=== PATIENT | male | born 1950 | race Caucasian/White ===

== ENCOUNTER 2016-06-30 03:28 | Inpatient (IN) | payer MEDICARE, OTHER ==
[2016-06-30] VITALS (8 sets, daily range): BP systolic 106–146; BP diastolic 58–91
[~2016-06-30] VITALS: Ht 165.1 cm; Wt 92.6 kg
[~2016-06-30 03:28] MED LIST: ADVAIR 250/501 EA INH; ALBUTEROL2.5 MG/0.5 INH; ASPIRIN ADULT L81 M2 PO; ASPIRIN81 M1 PO; CEPACOL SORE T1 EAC1 PO; CIPRO500 MG PO; COLACE100 MG PO; DOXYCYCLINE100 M3 PO; DUONEB 3 MG/3 ML3 M1 INH; FLOMAX0.4 MG PO; GLIPIZIDE5 MG PO; LEVAQUIN750 M1 PO; LEVOFLOXACIN500 MG PO; LISINOPRIL5 MG PO; MULTI VITAMINS1 TAB PO; OXYGEN NAS; PRAVACHOL20 MG PO; PREDNISONE10 M1 PO; PREDNISONE10 MG PO; PREDNISONE20 M1 PO; PROVENTIL0.09 MG/A1 INH; ROBITUSSIN COUG1 SGL PO; SIMVASTATIN80 MG PO; SPIRIVA RESPIMAT4 GM INH; SPIRIVA18 MCG PO; SYMBICORT1 AE1 INH; VIBRAMYCIN100 MG PO; VITAMIN D1000 IU PO; VITAMIN D31000 IU PO; ZESTRIL5 MG PO
[2016-06-30] MEDS ORDERED: NEURONTIN100 MG PO (03:31)
[2016-06-30 03:50] LABS: BASO % 0.2 % (0.0-1.0); EOS # 0.2 10*3/uL (0.0-0.4); EOS % 2.3 % (1.0-4.0); HEMATOCRIT 43.8 % (42.0-52.0); HEMOGLOBIN 14.8 g/dl (14.0-18.0); LYMPH # 0.8 10*3/uL (1.3-4.4); LYMPH % 9.5 % (27.0-41.0); MEAN CELL VOLUME 93.2 fl (80.0-94.0); MEAN CORPUSCULAR HGB 31.5 pg (27.0-31.0); MEAN CORPUSCULAR HGB CONC 33.8 g/dl (33.0-37.0); MEAN PLATELET VOLUME 9.7 fl (9.6-12.3); MONO # 0.8 10*3/uL (0.1-1.0); NEUT # 6.7 10*3/uL (2.3-7.9); NEUT % 78.9 % (47.0-73.0); PLATELET COUNT AUTOMATED 161 10*3/uL (130-400); RED CELL DISTRI WIDTH 12.9 % (0-14.5); WHITE BLOOD COUNT 8.4 10*3/uL (4.8-10.8)
[2016-06-30 04:08] LABS: ALKALINE PHOSPHATASE 64 U/L (45-117); BILIRUBIN, TOTAL 0.4 mg/dl (0.2-1.0); BUN 10 mg/dl (7-24); CARBON DIOXIDE 24 mmol/L (21-32); CHLORIDE 107 mmol/L (98-107); EST GLOM FILT AFRICAN AMERICAN > 60 ml/min; GLUCOSE 123 mg/dL (65-99); POTASSIUM 3.7 mmol/L (3.5-5.1); SGOT/AST 27 IU/L (3-35); SGPT/ALT 43 U/L (12-78); SODIUM 142 mmol/L (136-145); TOTAL PROTEIN 7.2 gm/dL (6.4-8.2)
[2016-06-30 04:09] LABS: TROPONIN I < 0.015 ng/ml (<0.045)
[2016-06-30 05:47] LABS: LA>2 REFLEX 2 HR DRAW NOW
[2016-06-30 06:19] LABS: HEMATOCRIT 43.5 % (42.0-52.0); HEMOGLOBIN 14.6 g/dl (14.0-18.0); MEAN CORPUSCULAR HGB 31.5 pg (27.0-31.0); MEAN CORPUSCULAR HGB CONC 33.6 g/dl (33.0-37.0); MEAN PLATELET VOLUME 9.8 fl (9.6-12.3); PLATELET COUNT AUTOMATED 161 10*3/uL (130-400); RED BLOOD COUNT 4.63 10*6/uL (4.50-5.90); RED CELL DISTRI WIDTH 13.2 % (0-14.5)
[2016-06-30 06:26] LABS: LA>2 RFLX FOLLOW UP AT 2 HRS 2.6 mmol/L (0.4-2.0)
[2016-06-30 06:31] LABS: ALBUMIN 4.1 gm/dl (3.1-4.5); ALKALINE PHOSPHATASE 63 U/L (45-117); BILIRUBIN, TOTAL 0.4 mg/dl (0.2-1.0); BUN 11 mg/dl (7-24); CARBON DIOXIDE 25 mmol/L (21-32); CHLORIDE 103 mmol/L (98-107); EST GLOM FILT AFRICAN AMERICAN > 60 ml/min; GLUCOSE 206 mg/dL (65-99); MAGNESIUM 1.8 mg/dL (1.5-2.1); PHOSPHOROUS 1.9 mg/dL (2.5-4.9); POTASSIUM 3.7 mmol/L (3.5-5.1); SGOT/AST 26 IU/L (3-35); SGPT/ALT 39 U/L (12-78); SODIUM 140 mmol/L (136-145); TOTAL PROTEIN 7.2 gm/dL (6.4-8.2)
[2016-06-30 06:41] LABS: FREE T4 0.95 ng/dl (0.76-1.46); THYROID STIM HORMONE (HS) 0.656 uIU/ml (0.358-4.75)
[2016-06-30 06:48] LABS: TROPONIN I < 0.015 ng/ml (<0.045)
[2016-06-30 06:53] LABS: PROTHROMBIN TIME 10.9 SECONDS (9.0-12.4)
[2016-06-30 07:07] LABS: LYMPHOCYTE # 0.3 10*3/uL (1.3-4.4); NEUTROPHIL # 8.7 10*3/uL (2.3-7.9); NEUTROPHILS 97 % (47-73); PLATELET SUFFICIENCY NORMAL (NORMAL); TOTAL CELLS COUNTED 100 #CELLS
[2016-06-30 08:09] LABS: LA>2 REFLEX 4 HR DRAW NOW
[2016-07-01] VITALS: BP 143/83
[2016-07-01 08:00] VITALS: BP 106/76
[2016-07-01 12:00] VITALS: BP 121/65
[2016-07-01 16:00] VITALS: BP 141/70
[2016-07-01 20:00] VITALS: BP 135/73
[2016-07-02] VITALS: BP 136/79
[2016-07-02 08:00] VITALS: BP 130/78
[2016-07-02 12:00] VITALS: BP 128/75
[2016-07-02 16:00] VITALS: BP 143/70
[2016-07-02] MEDS ORDERED: ZITHROMAX250 MG PO (17:19)
[2016-07-02] MEDS ORDERED: CEPACOL SORE T1 EAC1 PO (17:19)
[2016-07-02] MEDS ORDERED: MUCINEX ER600 MG PO (17:19)
== END 2016-07-02 21:00 | disposition home or self-care (01) | DRG 189 ==
LOC: ED 03:28 → 5E 04:39 → EDHOLD 04:39 → 5E 04:57
PROVIDERS: Emergency Medicine Emergency Medical Services; Internal Medicine Hospice and Palliative Medicine
DX: J96.01 Acute respiratory failure with hypoxia (principal); E87.2 Acidosis; J44.1 Chronic obstructive pulmonary disease with (acute) exacerbation; J64 Unspecified pneumoconiosis; E11.9 Type 2 diabetes mellitus without complications; E66.9 Obesity, unspecified; N40.0 Benign prostatic hyperplasia without lower urinary tract symptoms; I10 Essential (primary) hypertension; E78.5 Hyperlipidemia, unspecified; E55.9 Vitamin D deficiency, unspecified; Z87.891 Personal history of nicotine dependence; Z83.3 Family history of diabetes mellitus; Z82.49 Family history of ischemic heart disease and other diseases of the circulatory system; Z88.1 Allergy status to other antibiotic agents; Z88.8 Allergy status to other drugs, medicaments and biological substances; Z79.51 Long term (current) use of inhaled steroids; Z79.82 Long term (current) use of aspirin; Z99.81 Dependence on supplemental oxygen; Z79.899 Other long term (current) drug therapy; Z68.34 Body mass index [BMI] 34.0-34.9, adult

== ENCOUNTER 2017-02-09 04:03 | Inpatient (IN) | payer MEDICARE, OTHER ==
[~2017-02-09] VITALS: Ht 162.5 cm; Wt 89.0 kg
[2017-02-09] VITALS (7 sets, daily range): BP systolic 124–161; BP diastolic 63–91
--- NOTE | ~2017-02-09 | EKG ---
[place], [place] ELECTROCARDIOGRAM REPORT NAME: JASON SANTA UNIT #: [id number] ROOM: 405 DOCTOR: KELSEY RAMIREZ MD,NIKO BIRTHDATE: [birth year] DOS: 02/11/2017 ELECTROCARDIOGRAM Electrocardiogram done 02/11/2017 at 12:48 p.m. Normal sinus rhythm noted with 93 beats per minute. Nonspecific ST-T changes were noted in the lateral leads. NIKO COLE MD CM:EKGRPT:ELECTROCARDIOGRAM REPORT [id number] 1635 NIKO RAMIREZ MD
--- NOTE | ~2017-02-09 | PR ---
[place], [place] PROGRESS NOTE NAME: JASON SANTA UNIT #: [id number] ROOM: 405 DOCTOR: ASHLY HOPSON DO BIRTHDATE: [birth year] DOS: 02/12/2017 This progress note is to be attached to the one dictated separately by Dr. Cole. SUBJECTIVE: The patient was evaluated. He is awake, alert and responsive. He is still coughing and having some shortness of breath, but denying any fevers. A bronchoscopy was done earlier today and there were multiple mucus plugs and tracheobronchitis observed. Procedure, the patient tolerated the procedure and he will be staying overnight and getting reevaluated tomorrow. Otherwise, no new symptoms. OBJECTIVE: VITAL SIGNS: Temperature 98.3, pulse 80, respiratory rate 18, blood pressure 125/86, bedside pulse oximetry 93% on 2 liters nasal cannula. GENERAL: Awake, alert, oriented, mild distress. RESPIRATORY: Scattered wheezes, diminished breath sounds and crackles, more prominent on the left side. HEART: Regular rate and rhythm, no murmur. HEENT: No changes. ABDOMEN: Soft, nontender, nondistended. LABORATORY DATA: WBC is 17.6, HGB 15.5, and platelets are 192. Chemistry: Sodium is 135, creatinine 1.33, somewhat increased from yesterday; however, staying mostly in the same range. Hemoglobin A1c was 7.0, calcium 9.2, vitamin D, vitamin B12, and folate are all normal. ASSESSMENT AND PLAN: Chronic obstructive pulmonary disease exacerbation with mucus impaction leading to severe cough. Leukocytosis and steroid-induced hyperglycemia. PLAN OF MANAGEMENT: The patient did have a bronchoscopy done today and will continue with bronchodilators and antibiotics as currently being done. We will reevaluate tomorrow in hopes of improvement in the respiratory status and possible discharge if things go according to plan as expected, but otherwise no new changes at this time and please see Dr. Cole's note for more details. ASHLY HOPSON DO [place], [place] PROGRESS NOTE NAME: ARLENE SANTANOREEN Diop UNIT #: [id number] ROOM: [facility] DOCTOR: ASHLY HOPSON DO BIRTHDATE: [birth year] NIKO COLE MD CM:PNKATIE [id number] ASHLY HOPSON DO 02/13/17 0423 interface
--- NOTE | ~2017-02-09 | CON ---
[place], [place] REPORT OF CONSULTATION NAME: JASON SANTA [facility] #: [id number] UNIT #: [id number] ROOM: 405 DOCTOR: NIKO EDWARDS MD BIRTHDATE: [birth year] DOS: 02/09/2017 REASON FOR CONSULTATION: Consultation requested by the Hospitalist Services for assessment of COPD. HISTORY OF PRESENT ILLNESS: This is a 66-year-old white male with known past medical problem of centrilobular emphysema. The patient had pneumoconiosis and other medical illnesses, presented to the Emergency Room. He developed symptoms of acute shortness of breath, which worsened with symptoms of significant coughing and chest congestion. Symptoms were noted to gradual increase for the past 2 to 3 days. He came into the hospital for further medical management. He denies any symptoms of chest pain or any hemoptysis. Cough has been noted with whitish sputum expectoration. There were symptoms of chest pain described. There were symptoms of hemoptysis. Wheezing was described intermittently with symptoms of chest tightness. REVIEW OF SYSTEMS: CONSTITUTIONAL: He does complain of fatigue, but there were no symptoms of fever or chills. EYES: Denies burning, redness or discharge, dryness. NECK, EAR, NOSE, THROAT SYMPTOMS: Denies sore throat, hoarseness, otalgia, postnasal drainage or epistaxis. CARDIOVASCULAR: Denies anginal pain, edema, pain of the lower extremity. GASTROINTESTINAL: Denies dysphagia, nausea, vomiting, diarrhea, abdominal pain, hematemesis, melena, or hematochezia. SKIN: Denies lesions or rashes. MUSCULOSKELETAL: No acute deformities. CENTRAL NERVOUS SYSTEM: No loss of consciousness ____ syncopal episode, seizures. Remaining systems were reviewed. The patient, they were noted all negative. PAST MEDICAL HISTORY: 1. Centrilobular emphysema. 2. Essential hypertension. 3. Type 2 diabetes mellitus. 4. Pneumoconiosis. 5. Nephrolithiasis. SOCIAL HISTORY: The patient is , has 2 children. Denies history of alcohol use, illicit drug use. He used to use smoked tobacco pipe in the past that was discontinued about 40 years ago. Denies history of alcohol use or illicit drug use. PAST SURGICAL HISTORY: Noted None. FAMILY HISTORY: Father passed at the age of 60 due to complication related to tuberculosis. Mother at age 50 years due to complication of diabetes mellitus. MEDICATIONS: Current administered medications were noted as use of a sliding [place], [place] REPORT OF CONSULTATION [id number] UNIT #: [id number] ROOM: 405 DOCTOR: KELSEY RAMIREZ MD,NIKO BIRTHDATE: [birth year] insulin coverage, Mucinex 1200 mg b.i.d., Solu-Medrol 60 mg t.i.d., Lovenox, Protonix oral, Levaquin, and other p.r.n. medications administration. DRUG ALLERGIES: THE PATIENT NOTED ALLERGY TO: 1. ZITHROMAX. 2. ZANTAC. PHYSICAL EXAMINATION: GENERAL: A 66-year-old white male currently noted to be awake and alert without any acute distress. The patient's height was noted as 5 feet 4 inches, weight of 196 pounds. VITAL SIGNS: The patient showed normal temperature, respiratory rate 18, heart rate of 91, blood pressure 131/60-150/84. Pulse oxygen saturation of the patient recorded as 91% on 2 liter nasal cannula. HEENT: Showed no new change. NECK: Supple. CARDIOVASCULAR: S1, S2 audible. LUNGS: General reduction in the breath sounds noted in the lungs bilaterally with expiratory wheezing, no crackles. ABDOMEN: Soft, flat, nontender, bowel sounds present. EXTREMITIES: Noted without any edema, clubbing, cyanosis. CENTRAL NERVOUS SYSTEM: Cranial nerves 2-12 intact. No focal neurologic deficit. MUSCULOSKELETAL: No deformities. SKIN: Does not show lesions or rash in visible skin. LABORATORY DATA: CBC of the patient this morning noted as eosinophil 10.7%. Remaining CBC was normal. The lactic acid this morning was 1.4. PT/PTT this morning were normal. CMP this morning, glucose 130, BUN and creatinine were normal, remaining LFTs and a troponin normal. Sputum for Gram stain, cultures, many white blood cells, few epithelial cells, few gram-positive cocci in pairs, few gram-negative bacilli, pending culture results. The chest x-ray that was done for the patient on admission, just one view was done in the Emergency Room, which shows small area of left lower lobe atelectasis without any acute pulmonary infiltration. IMPRESSION: 1. The patient will be currently admitted to the hospital with finding consistent with acute tracheobronchitis and exacerbation of COPD from his past history known as well. 2. Acute bronchitis. Whether viral or bacterial for the patient needs to be determined. 3. The patient with a short-term tobacco use in the past. 4. History of pneumoconiosis, work-related was also known. 5. History of essential hypertension. 6. Type 2 diabetes mellitus noted with mild hyperglycemia. PLAN OF TREATMENT: The patient will be continued on current dose of corticosteroids for the next 24 hours. The reduction of the dose will be started most likely tomorrow. Monitor results of the sputum for Gram and [place], [place] REPORT OF CONSULTATION NAME: JASON SANTA UNIT #: [id number] ROOM: 405 DOCTOR: NIKO EDWARDS MD BIRTHDATE: [birth year] culture. Continue mucolytics. Continuation of bronchodilators as DuoNeb. Supportive therapy, plan of management. Additional treatment changes will be done based on progression of the illness. Ambulation as tolerated. Supportive care, other therapy, plan of management and other treatment plan. Usual care. Thanks for allowing me to participate in the care of this patient. NIKO COLE MD CM:CONSTR:REPORT OF CONSULTATION 1327 02/10/17 0436 interface
--- NOTE | ~2017-02-09 | PR ---
[place], [place] PROGRESS NOTE NAME: JASON SANTA UNIT #: [id number] ROOM: 405 DOCTOR: KELSEY RAMIREZ MD,NIKO BIRTHDATE: [birth year] DOS: 02/11/2017 PULMONARY FOLLOWUP SUBJECTIVE: The patient was seen and examined on 02/11/2017. He was still noted with intermittent coughing which has been noted episodic with minimal sputum expectoration. The patient has frequent episodes of the cough which were not resolving. There were no symptoms of chest pain; however, wheezing, shortness breath has been improving. This morning as the patient was seen, he was sitting on the chair. OBJECTIVE: VITAL SIGNS: For this morning were recorded as normal temperature, respiratory rate 18, heart rate 92, blood pressure 106/56. Pulse oxygen saturation on 2 liters nasal cannula 92% saturation recorded. HEENT: No acute change. NECK: Supple. CARDIOVASCULAR: S1, S2 audible. LUNGS: The patient was noted with generally reduced breath sounds with expiratory wheezing, no crackles. ABDOMEN: Soft, nontender. LABORATORY DATA: Culture of sputum, normal primo. The blood culture from ____, no bacterial growth, final results pending. BMP this morning, BUN 26, creatinine was normal. CBC this morning: WBC count 18,000, hemoglobin and hematocrit normal, platelet count normal, 96% segmented neutrophils. IMPRESSION: 1. The patient with persistent acute exacerbation of chronic obstructive pulmonary disease was noted at this time. 2. Severe cough which has been noted nonresolving with strong possibility of mucus impaction in the major airways. 3. The patient with leukocytosis related to the current corticosteroids administration. 4. Acute exacerbation of chronic obstructive pulmonary disease as well. 5. Steroid-induced hyperglycemia and mild azotemia as well. PLAN OF MANAGEMENT: The patient will be continued on current plan of therapy at this time as previously ordered. Bronchodilators will be continued. Continue current dose of steroids which has been decreased, monitoring the leukocytosis. Fibrobronchoscopy was suggested to be done in the morning to assess the mucus impaction and clear the mucus impaction in major airways. The risk and benefits have been discussed with the patient and he agreed with that. The procedure was scheduled to be done in the morning. [place], [place] PROGRESS NOTE NAME: JASON SANTA UNIT #: [id number] ROOM: 405 DOCTOR: NIKO EDWARDS MD BIRTHDATE: [birth year] NIKO COLE MD CM:PNTRANS 1212 [id number] NIKO RAMIREZ MD 02/12/17 0648 interface
--- NOTE | ~2017-02-09 | PR ---
[place], [place] PROGRESS NOTE NAME: JASON SANTA [facility] #: [id number] UNIT #: [id number] ROOM: 405 DOCTOR: KELSEY RAMIREZ MD,NIKO BIRTHDATE: [birth year] DOS: 02/13/2017 SUBJECTIVE: He has been doing very well at this time with current respiratory management. Bronchoscopy done yesterday, marked improvement noted in respiratory symptoms with reduction in wheezing, shortness of breath and cough. The patient was independently seen today with [id number] encounter. The physical finding of the patient was confirmed, history was reviewed all the labs reviewed. The planning for this patient and assessment personally made for today's visit. The note done by the resident medical officer was approved. The bronchial washing culture preliminary showing no bacterial growth. The auscultation of chest noted clear of any abnormal wheezing at this time. PLAN OF TREATMENT: The patient will be considered for home discharge with tapering dose of prednisone and the oral antibiotics. Outpatient followup to be established for the patient for his usual followup visit in the next 2-3 weeks after discharge. NIKO COLE MD CM:PNTRANS 1122 NIKO RAMIREZ MD 02/14/1713 interface
--- NOTE | ~2017-02-09 | PR ---
[place], [place] PROGRESS NOTE NAME: JASON SANTA UNIT #: [id number] ROOM: 405 DOCTOR: NIKO EDWARDS MD BIRTHDATE: [birth year] DOS: 02/10/2017 SUBJECTIVE: He has been noted excessive coughing last night. Shortness of breath has been noted decreased. The wheezing was noted intermittently. There were no symptoms of chest pain. OBJECTIVE: VITAL SIGNS: For the patient, which has been recorded showed the temperature noted as normal. The respiratory rate 18, heart rate 81, blood pressure 144/74. The pulse oxygen saturation on 2 liters nasal cannula 94% saturation. HEENT: Showed no new change. NECK: Supple. CARDIOVASCULAR: S1, S2 is audible. LUNGS: The patient was noted with moderate expiratory wheezing. There were no crackles. ABDOMEN: Soft, nontender. EXTREMITIES: Shows no edema. LABORATORY DATA: Culture of the sputum on showed normal primo, final culture results were pending. CMP this morning, BUN 23, creatinine 1.33, which was elevated. CBC of this morning: WBC count 20,000; hemoglobin, hematocrit and platelet count was normal. IMPRESSION: 1. Ongoing acute exacerbation of chronic obstructive pulmonary disease. 2. Coughing for this patient was also noted, most likely related to mucus impaction and underlying pulmonary infection. 3. Leukocytosis worsened for the patient because of the use of the corticosteroids effect. 4. Hyperglycemia secondary to the use of the corticosteroids. PLAN OF MANAGEMENT: Dose of Solu-Medrol will be decreased. Monitor leukocytosis. Continuation of bronchodilators as well as mucolytics. Use of the flutter valve for the patient as well. No change in antibiotic at this time will be necessary. Additional treatment changes need to be made based on progression of the illness. [place], [place] PROGRESS NOTE NAME: JASON SANTA UNIT #: [id number] ROOM: 405 DOCTOR: NIKO EDWARDS MD BIRTHDATE: [birth year] NIKO COLE MD CM:PNTRANS [phone] NIKO RAMIREZ MD 02/11/17 0106 interface
--- NOTE | ~2017-02-09 | PR ---
[place], [place] PROGRESS NOTE NAME: JASON SANTA UNIT #: [id number] ROOM: 405 DOCTOR: NIKO EDWARDS MD BIRTHDATE: [birth year] DOS: 02/12/2017 ADDENDUM NOTE PULMONARY FOLLOWUP SUBJECTIVE: The patient was independently seen today with [id number] encounter, history was confirmed. Physical examination performed. Assessment management for the patient for today's visit was personally completed as well. Any changes in the medical management personally made for this patient as needed. The note done by the medical office coordinator was approved. The patient had been noted comfortable at this time, but still noted severe cough, which remains episodic without any improvement from yesterday. Shortness breath for the patient noted with current episode of cough. The wheezing was also described intermittently. He has noted n.p.o. past midnight for bronchoscopy. OBJECTIVE: VITAL SIGNS: Normal temperature, respiratory rate 20, heart rate 86, blood pressure 118/80. The pulse oxygen saturation on 3 liters nasal cannula was 96% saturation. HEENT: No new change. NECK: Supple. CARDIOVASCULAR: S1, S2 audible. LUNGS: Shows moderate reduced breath sounds, expiratory wheezing, no crackles. ABDOMEN: Soft, obese, nontender. EXTREMITIES: Without any edema. LABORATORY DATA: BMP: BUN 28, creatinine 1.33, sodium 135. CBC: WBC count 17.6, hemoglobin and hematocrit normal, platelet count was normal. IMPRESSION: The patient with persistent severe cough. The patient's other symptoms remain and persist. Current medical management ongoing for the patient for the acute exacerbation of COPD. Suspected mucus impaction, leukocytosis also noted. Combination of the steroids and the current acute infection. PLAN OF MANAGEMENT: Proceed with bronchoscopy as planned. Monitor leukocytosis. Continue antibiotics, bronchodilators, modification to treatment after bronchoscopy for the patient will be made accordingly. Continue symptomatic management for cough as well. Usual care. Supportive therapy, plan of management. [place], [place] PROGRESS NOTE NAME: JASON SANTA UNIT #: [id number] ROOM: 405 DOCTOR: NIKO EDWARDS MD BIRTHDATE: [birth year] NIKO COLE MD CM:PNKATIE [id number] NIKO RAMIREZ MD 02/12/17 0340 interface
--- NOTE | ~2017-02-09 | PROC NOTE ---
[place], [place] PROCEDURE NOTE [id number] UNIT #: [id number] ROOM: 405 DOCTOR: KELSEY RAMIREZ MD,NIKO BIRTHDATE: [birth year] DOS: 02/12/2017 PROCEDURE: Bronchoscopy. PREOPERATIVE DIAGNOSES: Persistent severe nonresolving cough with maximal medical therapy with symptoms of shortness of breath and wheezing as well. POSTOPERATIVE DIAGNOSES: Severe impaction of the mucus plug clear from the left endobronchial tree, mild to moderate from the right endobronchial tree. FINDINGS: Acute bronchitis. PROCEDURE DESCRIPTION: Informed consent obtained from the patient. The patient was brought to the OR and placed in supine position. Conscious sedation administered by the Anesthesia Department. After achieving proper sedation, airway introduced into the mouth. Bronchoscope advanced to the airway into laryngeal area. Epiglottis and vocal cords were seen. Bronchoscope advanced through the vocal cord and tracheal lumen. The tracheal lumen was noted with moderate amount of thick mucoid secretions. The secretion was removed to the edita level. Right upper, right middle, right lower lobe bronchial opening was noted with moderate impaction of the mucus plug, which were removed endobronchial tree. Acute inflammatory changes noted in the right endobronchial tree as well. There were no obstructive lesion. The left main stem bronchus noted with a large amount of thick mucoid secretion with some purulent secretion which were initially suctioned out from the left main stem bronchus. ____ thick plugs of the mucus was present in the left upper lingula and lower lobe bronchi, which were removed with the help of normal saline wash and sent for cultures. Procedure was well tolerated by the patient without any difficulty. Postoperative finding will be discussed with the patient once the patient recovered the effects of acute sedation. No change in the treatment, otherwise, will be needed. NIKO COLE MD CM:PROCNOTE:PROCEDURE NOTE 1214 [id number] NIKO RAMIREZ MD
--- NOTE | ~2017-02-09 | EKG ---
[place], [place] ELECTROCARDIOGRAM REPORT NAME: JASON SANTA UNIT #: [id number] ROOM: 405 DOCTOR: KELSEY RAMIREZ MD,NIKO BIRTHDATE: [birth year] DOS: 02/09/2017 ELECTROCARDIOGRAM Electrocardiogram done on 02/09/2017 at 4:31 a.m. Normal sinus rhythm noted with heart rate 73 beats per minute. Nonspecific ST-T changes were noted, otherwise normal EKG. NIKO COLE MD CM:EKGRPT:ELECTROCARDIOGRAM REPORT 1307 1633 NIKO RAMIREZ MD
--- NOTE | ~2017-02-09 | PR ---
[place], [place] PROGRESS NOTE NAME: JASON SANTA UNIT #: [id number] ROOM: 405 DOCTOR: EMILIANA MAREKPOLLO BIRTHDATE: [birth year] DOS: 02/13/2017 This progress note is to be attached to the one separately dictated by Dr. Cole. SUBJECTIVE: The patient was evaluated today. He is awake and alert and responsive. He states breathing has improved significantly since the bronch that he had yesterday and he is looking forward to going home if at all possible. He denies any chest pain. He states that he has not had any fevers and his cough has improved. No abdominal pain. No diarrhea. No other symptoms. OBJECTIVE: VITAL SIGNS: Temperature 97.5, pulse 64, respiratory rate 16, blood pressure 122/64, bedside pulse oximetry 97% on 2 liter nasal cannula. GENERAL: The patient is awake, alert, oriented, in no acute distress. RESPIRATORY: Scattered wheezes and improved airflow. No crackles. CARDIAC: Regular rate and rhythm. No murmurs. ABDOMEN: Soft, nontender, nondistended. PSYCHIATRIC: No evidence of affect or mood abnormalities. NEUROLOGIC: No acute focal neuro deficits. SKIN: No lacerations or lesions. LABORATORY DATA: WBC 15.2, HGB 15.3 and platelets are 191. Sodium is 135, potassium 4.8, chloride 102, carbon dioxide 26, creatinine was 1.23 and glucose 224. IMPRESSION: 1. Chronic obstructive pulmonary disease exacerbation with acute tracheobronchitis. 2. Acute on chronic respiratory failure with mucus plugging. PLAN: The patient has improved significantly and he continues to do so. He at this time is stable enough from a respiratory perspective to be discharged at the discretion of the primary care team. At the time of discharge, he can continue with the steroid taper as well as the current antibiotics and breathing treatments. ASHLY JIMENEZFELIPEDO [place], [place] PROGRESS NOTE NAME: JASON SANTA UNIT #: [id number] ROOM: 405 DOCTOR: ASHLY HOPSON DO BIRTHDATE: [birth year] NIKO COLE MD CM:PNKATIE 25 [phone] ASHLY HOPSON DO 02/13/17 140 interface
[~2017-02-09 04:03] MED LIST changes: +MUCINEX ER600 MG PO; +NEURONTIN100 MG PO; +ZITHROMAX250 MG PO
[2017-02-09 04:50] LABS: BASO % 0.5 % (0.0-1.0); EOS # 0.8 10*3/uL (0.0-0.4); EOS % 10.7 % (1.0-4.0); HEMATOCRIT 46.8 % (42.0-52.0); HEMOGLOBIN 15.8 g/dl (14.0-18.0); LYMPH # 1.4 10*3/uL (1.3-4.4); LYMPH % 18.4 % (27.0-41.0); MEAN CELL VOLUME 94.2 fl (80.0-94.0); MEAN CORPUSCULAR HGB 31.8 pg (27.0-31.0); MEAN CORPUSCULAR HGB CONC 33.8 g/dl (33.0-37.0); MEAN PLATELET VOLUME 9.7 fl (9.6-12.3); MONO # 0.4 10*3/uL (0.1-1.0); MONO % 5.1 % (3.0-9.0); NEUT # 4.8 10*3/uL (2.3-7.9); PLATELET COUNT AUTOMATED 173 10*3/uL (130-400); RED BLOOD COUNT 4.97 10*6/uL (4.50-5.90); RED CELL DISTRI WIDTH 13.2 % (0-14.5); WHITE BLOOD COUNT 7.4 10*3/uL (4.8-10.8)
[2017-02-09 05:05] LABS: ACT PARTIAL THROMBO TIME 24.1 SECONDS (20.8-31.5)
[2017-02-09 05:06] LABS: ALBUMIN 3.9 gm/dl (3.1-4.5); ALKALINE PHOSPHATASE 60 U/L (45-117); BUN 14 mg/dl (7-24); CHLORIDE 107 mmol/L (98-107); CREATININE 1.15 mg/dL (0.70-1.30); POTASSIUM 3.9 mmol/L (3.5-5.1); SGOT/AST 26 IU/L (3-35); SGPT/ALT 51 U/L (12-78); SODIUM 141 mmol/L (136-145); TOTAL PROTEIN 7.2 gm/dL (6.4-8.2)
[2017-02-09 05:07] LABS: TROPONIN I < 0.015 ng/ml (<0.045)
--- NOTE | 2017-02-09 07:35 | NUR ---
Time: 548 A 62 year old male admitted to 4E under services of CARLA MOLINA DO. Pt. arrived via stretcher from ER. Chief complaint: sob, copd. DEREK DUDLEY
--- NOTE | 2017-02-09 11:10 | NUR ---
ATTEMPTED TO [facility] TO [facility]; CLINIC CLOSED AT THIS TIME. WILL PASS ALONG TO NEXT SHIFT.
--- NOTE | 2017-02-09 13:00 | NUR ---
MADE AWARE OF CONSULT WHILE ON FLOOR.
--- NOTE | 2017-02-09 19:19 | NUR ---
24 HR chart check completed.
[2017-02-10] VITALS: BP 131/78
[2017-02-10 06:02] LABS: BASO % 0.2 % (0.0-1.0); HEMATOCRIT 46.3 % (42.0-52.0); HEMOGLOBIN 15.8 g/dl (14.0-18.0); LYMPH % 5.1 % (27.0-41.0); MEAN CELL VOLUME 94.9 fl (80.0-94.0); MEAN CORPUSCULAR HGB 32.4 pg (27.0-31.0); MEAN CORPUSCULAR HGB CONC 34.1 g/dl (33.0-37.0); MEAN PLATELET VOLUME 10.2 fl (9.6-12.3); MONO % 5.2 % (3.0-9.0); NEUT # 17.8 10*3/uL (2.3-7.9); NEUT % 88.8 % (47.0-73.0); PLATELET COUNT AUTOMATED 192 10*3/uL (130-400); RED BLOOD COUNT 4.88 10*6/uL (4.50-5.90); RED CELL DISTRI WIDTH 13.5 % (0-14.5)
[2017-02-10 06:04] LABS: ALKALINE PHOSPHATASE 58 U/L (45-117); BUN 23 mg/dl (7-24); CHLORIDE 104 mmol/L (98-107); CHOLESTEROL 129 mg/dL (<200); CREATININE 1.33 mg/dL (0.70-1.30); FREE T4 0.92 ng/dl (0.76-1.46); HDL CHOLESTEROL 51 mg/dl (40-60); LDL CHOLESTEROL 64 mg/dL (9-159); PHOSPHOROUS 2.9 mg/dL (2.5-4.9); POTASSIUM 4.1 mmol/L (3.5-5.1); SGOT/AST 19 IU/L (3-35); SGPT/ALT 44 U/L (12-78); SODIUM 137 mmol/L (136-145); TOTAL PROTEIN 7.4 gm/dL (6.4-8.2); TRIGLYCERIDES 69 mg/dl (<150); VLDL CHOLESTEROL 14 mg/dL (6-40)
[2017-02-10 06:09] LABS: THYROID STIM HORMONE (HS) 0.285 uIU/ml (0.358-4.75)
[2017-02-10 06:17] LABS: ACT PARTIAL THROMBO TIME 22.6 SECONDS (20.8-31.5)
--- NOTE | 2017-02-10 07:51 | NUR ---
Requested and medicated with Tylenol at 0600 for complaints of PHILLIPS rated a 5/10. Will continue to monitor.
[2017-02-10 08:00] VITALS: BP 144/74
[2017-02-10] MEDS ORDERED: VENTOLIN 02.5 MG/3 M INH (09:00)
--- NOTE | 2017-02-10 09:00 | NUR ---
CALLED & VERIFIED MEDICATION LIST WITH [facility].
--- NOTE | 2017-02-10 09:00 | NUR ---
Nutrition Tech in to talk to patient. Patient states lives at home with grandson and family. There are no steps in the home. Physician: nd Pharmacy: nd pharmacy Home health services: none Patient's level of ADLs: INDEPENDENT Patient has working utilities: all working DME: home oxygen and portable tank, doesn't remember name of company Follow-up physician's appointment after d/c: will be made by hospitalist nurse director upon discharge Does patient want to access PORTAL?: no Discharge plan discussed with patient, patient lives at home with family, is independent in adls and ambulation, patient has home oxygen and portable tanks but doesn't remember name of company, patient states he will be going back home and denies any home needs. HERMILO ZAPIEN
[2017-02-10] MEDS ORDERED: SIMVASTATIN80 MG PO (09:03)
[2017-02-10] MEDS ORDERED: TAMSULOSIN HCL0.4 MG PO (09:05)
[2017-02-10 11:27] LABS: VITAMIN D, 25-HYDROXY 36.7 ng/mL (30-100)
[2017-02-10 11:57] VITALS: BP 113/54
[2017-02-10 16:00] VITALS: BP 115/57
--- NOTE | 2017-02-10 19:02 | NUR ---
24 HR chart check completed.
[2017-02-10 20:00] VITALS: BP 129/63
--- NOTE | 2017-02-10 21:38 | NUR ---
C/O BURNING TO IV SITE RIGHT HAND. SITE DISCONTINUED.
[2017-02-11] VITALS: BP 122/70
--- NOTE | 2017-02-11 00:25 | NUR ---
24 HR chart check completed.
[2017-02-11 05:59] LABS: HEMATOCRIT 45.7 % (42.0-52.0); HEMOGLOBIN 15.4 g/dl (14.0-18.0); MEAN CELL VOLUME 94.8 fl (80.0-94.0); MEAN CORPUSCULAR HGB CONC 33.7 g/dl (33.0-37.0); MEAN PLATELET VOLUME 10.3 fl (9.6-12.3); PLATELET COUNT AUTOMATED 192 10*3/uL (130-400); RED BLOOD COUNT 4.82 10*6/uL (4.50-5.90); RED CELL DISTRI WIDTH 13.6 % (0-14.5)
[2017-02-11 06:12] LABS: CHLORIDE 105 mmol/L (98-107); POTASSIUM 4.2 mmol/L (3.5-5.1); SODIUM 137 mmol/L (136-145)
[2017-02-11 06:15] LABS: BUN 26 mg/dl (7-24); CREATININE 1.26 mg/dL (0.70-1.30)
[2017-02-11 06:32] LABS: TOTAL CELLS COUNTED 100 #CELLS
[2017-02-11 06:33] LABS: PLATELET SUFFICIENCY NORMAL (NORMAL)
[2017-02-11 08:00] VITALS: BP 106/56
--- NOTE | 2017-02-11 09:00 | NUR ---
case management visits with patient, patient denies any home needs
[2017-02-11 12:00] VITALS: BP 110/50
[2017-02-11 16:00] VITALS: BP 141/61
--- NOTE | 2017-02-11 16:37 | NUR ---
PHYSICAL THERAPY EVAL COMPLETED. PATIENT ALERT, ORIENTED; COOPERATIVE AND PLEASANT. PATIENT ID'ED BY NAME AND . PATIENT HAD A COUGHIN SPELL DURING OUR SESSION WITH A PROLONGED PERIOD OF HARSH COUGHING WITH CLEAR, PRODUCTIGVE SPUTUM. PATIENT WAS FATIGUED AFTER THIS AND REQUIRED AT LEAST 3 MINUTES TO SIT AND REST. PATIENT WAS WEARIGN 2L OXGYEN VIA NASAL CANNULA THROUGHOUT THE ENTIRE SESSION. PATIENT IS INDEPENDENT WITH CHAIR AND BED TRANSFERS WELL ADN BED MOBILIYT. PATIENT SCORES A LOW FALL RISK ON 5 REP SIT TO STAND TEST. HOWEVER; PATIENT IS VERY SOB WITH WALKING. PATIENT WALKED PUSHING PORTABLE OXYGEN TANK OUT OF HIS ROOM X 40 FT AND WAS VERY SOB REQUIRING STANDING REST MOMENTARIYLY AND THE SESSION WAS ENDED AFTER HIS WALK WITH PATIENT SITTING, RESTING IN HIS CHAIR. PATIENT IN NAD, VERY WILLING TO PARITICIPATE AND IS PRIMARILY LIMITED BY HIS BREATHING. PATIENT DENIED PAIN EXCEPT FOR SORENESS OF THE ABDOMINAL/GROIN AREA FOR SO MUCH COUGHING. PATIENT DID NOT PERFORM PROPER BREATHING TECHNIQUES WELL AND REQUIRES FURTHER INSTRUCTION/EDUCATION. CONTINUE PHYSICAL THERAPY FOR ENDURANCE, PROPER BREATHING, GAIT TRAINING, SAFETY AND EDUCATION. LOW COMPLEXITY PT EVROCHELLE THANK YOU FOR THIS REFERRAL, PAPA BLAKE, PT
[2017-02-11 20:00] VITALS: BP 128/67
--- NOTE | 2017-02-11 20:15 | NUR ---
PT C/O SORE ABD/CHEST D/T COUGHING AND DIZZINESS W/ COUGHING. EXPECTORATING WHITE SPUTUM W/COUGH. MEDICATED W/PRN TYLENOL FOR C/O H/A FROM COUGHING. PT GOING TO GET A SHOWER.
[2017-02-12] VITALS (9 sets, daily range): BP systolic 115–156; BP diastolic 61–86
[2017-02-12 06:28] LABS: BASO % 0.1 % (0.0-1.0); HEMATOCRIT 46.2 % (42.0-52.0); HEMOGLOBIN 15.5 g/dl (14.0-18.0); LYMPH # 1.1 10*3/uL (1.3-4.4); LYMPH % 6.1 % (27.0-41.0); MEAN CELL VOLUME 94.3 fl (80.0-94.0); MEAN CORPUSCULAR HGB 31.6 pg (27.0-31.0); MEAN CORPUSCULAR HGB CONC 33.5 g/dl (33.0-37.0); MEAN PLATELET VOLUME 9.9 fl (9.6-12.3); MONO # 0.7 10*3/uL (0.1-1.0); MONO % 3.9 % (3.0-9.0); NEUT # 15.7 10*3/uL (2.3-7.9); PLATELET COUNT AUTOMATED 192 10*3/uL (130-400); RED CELL DISTRI WIDTH 13.7 % (0-14.5); WHITE BLOOD COUNT 17.6 10*3/uL (4.8-10.8)
[2017-02-12 06:58] LABS: BUN 28 mg/dl (7-24); CHLORIDE 103 mmol/L (98-107); CREATININE 1.33 mg/dL (0.70-1.30); POTASSIUM 4.6 mmol/L (3.5-5.1); SODIUM 135 mmol/L (136-145)
--- NOTE | 2017-02-12 07:43 | NUR ---
PT DOWN FOR BRONCHOSCOPY AT THIS TIME.
--- NOTE | 2017-02-12 07:45 | NUR ---
ASSESSMENT COMPLETED AND DOCUMENTED. DENIES SOB. O2 IN PLACE VIA NC AT 2L. PT TO OR FOR BRONCH LM BLANTON [id number]
--- NOTE | 2017-02-12 09:00 | NUR ---
case management attempted to visit with patient, patient out of room at this time
--- NOTE | 2017-02-12 09:40 | NUR ---
PT RETURNED FROM BRONCHOSCOPY AT THIS TIME. PT STATES HE IS STILL HAVING A LOT OF COUGHING, PRODUCTIVE FOR MORALES SPUTUM, PT DENIES SOB, ON 2L NC, LUNG SOUNDS DIMINISHED, BUT CLEAR. HRR, PT DENIES CP, NO EDEMA NOTED. PT DOES NOTE SOME SORENESS FROM COUGHING TO HIS RIBS, BUT PT DENIES NEED FOR TYLENOL AT THIS TIME. EDUCATED PT ON HIS DIETARY RESTRICTIONS AT THIS TIME. CALL LIGHT WITHIN REACH.
--- NOTE | 2017-02-12 10:00 | NUR ---
PT IS SITTING IN CHAIR. PT HAS NO COMPLAINTS
--- NOTE | 2017-02-12 11:03 | NUR ---
PHYSICAL THERAPY Mr Butt off the floor this AM down for his bronchoscopy. 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
--- NOTE | 2017-02-12 11:30 | NUR ---
IV TO LEFT HAND D/C'D DUE TO LEAKING. ATTEMPTED TO FLUSH WIHTOUT BLOOD RETURN AND CONTINUES TO LEAK. SITE ASYMPTOMATIC. #24 ANGIOCATH INSERTED INTO RIGHT HAND. GOOD BLOOD RETURN AND FLUSHES WITH EASE. PT TOLERATED WELL.
--- NOTE | 2017-02-12 12:30 | NUR ---
PT IS SITTING IN CHAIR WAITING ON LUNCH HE ORDERED. DENIES PAIN AT THIS TIME. NO COMPLAINTS FROM PT LM BLANTON SPNJDRC
--- NOTE | 2017-02-12 13:12 | NUR ---
PHYSICAL THERAPY Pt seen this PM after his AM bronch. All transfers were independent. Gait with portable o2 2L and did well and just a little SOB with this, Pt had IV Pole 220' X 1, CG X 1, no LOB and verbal cueing for gait safety. Pt back up in his bedside chair call light and 2 L o2. 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
--- NOTE | 2017-02-12 13:41 | NUR ---
RE[facility]
[2017-02-13] VITALS: BP 94/64
[2017-02-13 06:06] LABS: BASO % 0.1 % (0.0-1.0); HEMATOCRIT 45.9 % (42.0-52.0); HEMOGLOBIN 15.3 g/dl (14.0-18.0); LYMPH # 1.1 10*3/uL (1.3-4.4); LYMPH % 7.3 % (27.0-41.0); MEAN CELL VOLUME 94.3 fl (80.0-94.0); MEAN CORPUSCULAR HGB 31.4 pg (27.0-31.0); MEAN CORPUSCULAR HGB CONC 33.3 g/dl (33.0-37.0); MEAN PLATELET VOLUME 10.1 fl (9.6-12.3); MONO # 0.8 10*3/uL (0.1-1.0); MONO % 5.1 % (3.0-9.0); NEUT # 13.1 10*3/uL (2.3-7.9); NEUT % 86.2 % (47.0-73.0); PLATELET COUNT AUTOMATED 191 10*3/uL (130-400); RED BLOOD COUNT 4.87 10*6/uL (4.50-5.90); RED CELL DISTRI WIDTH 13.4 % (0-14.5); WHITE BLOOD COUNT 15.2 10*3/uL (4.8-10.8)
[2017-02-13 06:12] LABS: BUN 29 mg/dl (7-24); CHLORIDE 102 mmol/L (98-107); CREATININE 1.23 mg/dL (0.70-1.30); POTASSIUM 4.8 mmol/L (3.5-5.1); SODIUM 135 mmol/L (136-145)
[2017-02-13 07:30] VITALS: BP 122/64
[2017-02-13] MEDS ORDERED: B12,B-12,B 12500 MC1 PO (07:30)
[2017-02-13] MEDS ORDERED: VITAMIN D31000 UNI1 PO (07:30)
--- NOTE | 2017-02-13 07:30 | NUR ---
ASSESSMENT COMPLETED AND DOCUMENTED. PT IS SITTING UP IN CHAIR WAITING FOR BREAKFAST HE ORDERED. NO COMPLAINTS AT THIS TIME. LM BLANTON SPNJDRC
--- NOTE | 2017-02-13 07:35 | NUR ---
IN TO SEE PT, ASSESSMENT COMPLETE, PT ALERT ORIENTED, PLEASANT. PT CURRENTLY SITTING UP IN CHAIR BESIDE BED. NO C/O SOB OR PAIN. LUNGS DIMINISHED THROUGHOUT, HEART RATE REGULAR, NORMOACTIVE BOWEL SOUNDS. NO C/O DYSURIA. PT ENCOURAGED TO USE CALL LIGHT FOR QUESTIONS AND CONCERNS.
--- NOTE | 2017-02-13 08:33 | NUR ---
PHYSICAL THERAPY Dean was seen this AM 1:1 for his therapy gait, all transfers were independent, no LOB. Gait total 130' X 2, supervision X 1, no LOB. Pt on portable o2 at 2 L, no IV Pole this gait and did not get SOB the gait, Pt up in his bedside chair call light, no complaints. 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
--- NOTE | 2017-02-13 09:00 | NUR ---
case management visits with patient, patient states he will be going home and denies any home needs
--- NOTE | 2017-02-13 09:45 | NUR ---
PT AMBULATED TO TAKE A SHOWER AND IS NOW SITTING UP IN CHAIR.PT DENIES PAIN AT THIS TIME. LM MARQUEZNJDRC
[2017-02-13 12:00] VITALS: BP 124/70
--- NOTE | 2017-02-13 12:00 | NUR ---
PT IS SITTING IN RECLINER EATING LUNCH. DENIES PAIN AT THIS TIME. LM BLANTON SPNJDRC
[2017-02-13] MEDS ORDERED: LEVAQUIN750 M1 PO (12:46)
[2017-02-13] MEDS ORDERED: PREDNISONE10 MG PO (12:46)
--- NOTE | 2017-02-13 13:58 | NUR ---
RE[facility]
--- NOTE | 2017-02-13 14:13 | NUR ---
PT SITTING UP IN CHAIR BESIDE BED AT THIS TIME, RESTING. EASILY AROUSED. NO S/S OF PAIN OR DISTRESS. NO COMPLAINTS VOICED. RESPIRATIONS EASY.
[2017-02-13 15:09] LABS: ACID FAST SMEAR Negative (.); ACID FAST SPEC PROCESSING Concentration (.)
--- NOTE | 2017-02-13 15:36 | NUR ---
PHYSICAL THERAPY CO-SIGN I approve of the Phyical Therapy notes written above. AYLIN FRANCES PT
[2017-02-13 16:00] VITALS: BP 110/69
--- NOTE | 2017-02-13 17:15 | NUR ---
Discharge instructions reviewed with patient/family. Patient receptive and verbalizes understanding. Follow-up care arranged. Written instructions given to patient/family. AMANDA BAXTER
== END 2017-02-13 17:15 | disposition home or self-care (01) | DRG 189 ==
LOC: ED 04:03 → EDHOLD 05:17 → 4E 05:17
PROVIDERS: Hospitalist; Internal Medicine Critical Care Medicine; Student in an Organized Health Care Education/Training Program; ADMIT Internal Medicine
DX: J96.20 Acute and chronic respiratory failure, unspecified whether with hypoxia or hypercapnia (principal); J18.9 Pneumonia, unspecified organism; T17.890A Other foreign object in other parts of respiratory tract causing asphyxiation, initial encounter; J44.0 Chronic obstructive pulmonary disease with (acute) lower respiratory infection; J44.1 Chronic obstructive pulmonary disease with (acute) exacerbation; D72.829 Elevated white blood cell count, unspecified; E55.9 Vitamin D deficiency, unspecified; J20.9 Acute bronchitis, unspecified; N40.0 Benign prostatic hyperplasia without lower urinary tract symptoms; T38.0X5A Adverse effect of glucocorticoids and synthetic analogues, initial encounter; E11.65 Type 2 diabetes mellitus with hyperglycemia; E78.5 Hyperlipidemia, unspecified; E66.9 Obesity, unspecified; M19.90 Unspecified osteoarthritis, unspecified site; I10 Essential (primary) hypertension; J64 Unspecified pneumoconiosis; X58.XXXA Exposure to other specified factors, initial encounter; Y93.89 Activity, other specified; Y92.89 Other specified places as the place of occurrence of the external cause; Z88.1 Allergy status to other antibiotic agents; Y99.8 Other external cause status; Z68.33 Body mass index [BMI] 33.0-33.9, adult; Z88.8 Allergy status to other drugs, medicaments and biological substances; Z99.81 Dependence on supplemental oxygen; Z79.2 Long term (current) use of antibiotics; Z79.899 Other long term (current) drug therapy; Z87.442 Personal history of urinary calculi; Z87.891 Personal history of nicotine dependence; Z82.5 Family history of asthma and other chronic lower respiratory diseases; Z83.3 Family history of diabetes mellitus; Z82.49 Family history of ischemic heart disease and other diseases of the circulatory system; Z79.51 Long term (current) use of inhaled steroids; Z79.82 Long term (current) use of aspirin

== ENCOUNTER 2017-03-08 05:56 | Inpatient (IN) | payer MEDICARE, OTHER ==
[~2017-03-08] VITALS: Ht 165 cm; Wt 91.0 kg
[2017-03-08] VITALS (9 sets, daily range): BP systolic 105–162; BP diastolic 66–100
--- NOTE | ~2017-03-08 | EKG ---
[place], [place] ELECTROCARDIOGRAM REPORT NAME: JASON SANTA UNIT #: [id number] ROOM: 525 DOCTOR: KELSEY RAMIREZ MD,NIKO BIRTHDATE: [birth year] DOS: 03/08/2017 Electrocardiogram done on 03/08/2017 at 6:20 a.m. Normal sinus rhythm were noted at a heart rate of 71 beats per minute. Nonspecific diffuse ST-T changes were noted. NIKO COLE MD CM:EKGRPT:ELECTROCARDIOGRAM REPORT [id number] NIKO RAMIREZ MD
[~2017-03-08 05:56] MED LIST changes: +B12,B-12,B 12500 MC1 PO; +TAMSULOSIN HCL0.4 MG PO; +VENTOLIN 02.5 MG/3 M INH; +VITAMIN D31000 UNI1 PO
[2017-03-08 06:33] LABS: BASO % 0.2 % (0.0-1.0); EOS # 0.5 10*3/uL (0.0-0.4); EOS % 11.7 % (1.0-4.0); HEMATOCRIT 43.5 % (42.0-52.0); HEMOGLOBIN 14.5 g/dl (14.0-18.0); LYMPH # 1.3 10*3/uL (1.3-4.4); MEAN CORPUSCULAR HGB 31.3 pg (27.0-31.0); MEAN CORPUSCULAR HGB CONC 33.3 g/dl (33.0-37.0); MEAN PLATELET VOLUME 9.9 fl (9.6-12.3); MONO # 0.3 10*3/uL (0.1-1.0); MONO % 6.4 % (3.0-9.0); NEUT # 2.3 10*3/uL (2.3-7.9); NEUT % 52.2 % (47.0-73.0); PLATELET COUNT AUTOMATED 175 10*3/uL (130-400); RED BLOOD COUNT 4.63 10*6/uL (4.50-5.90); RED CELL DISTRI WIDTH 13.2 % (0-14.5); WHITE BLOOD COUNT 4.4 10*3/uL (4.8-10.8)
[2017-03-08 07:00] LABS: ALBUMIN 3.8 gm/dl (3.1-4.5); ALKALINE PHOSPHATASE 63 U/L (45-117); BUN 12 mg/dl (7-24); CHLORIDE 106 mmol/L (98-107); CREATININE 1.21 mg/dL (0.70-1.30); POTASSIUM 4.2 mmol/L (3.5-5.1); SGOT/AST 27 IU/L (3-35); SGPT/ALT 47 U/L (12-78); SODIUM 141 mmol/L (136-145); TOTAL PROTEIN 7.2 gm/dL (6.4-8.2)
[2017-03-08 07:05] LABS: TROPONIN I < 0.015 ng/ml (<0.045)
[2017-03-09] VITALS: BP 115/68
[2017-03-09 06:44] LABS: BASO % 0.1 % (0.0-1.0); HEMATOCRIT 42.3 % (42.0-52.0); HEMOGLOBIN 14.6 g/dl (14.0-18.0); LYMPH # 0.8 10*3/uL (1.3-4.4); LYMPH % 7.4 % (27.0-41.0); MEAN CELL VOLUME 91.6 fl (80.0-94.0); MEAN CORPUSCULAR HGB 31.6 pg (27.0-31.0); MEAN CORPUSCULAR HGB CONC 34.5 g/dl (33.0-37.0); MONO # 0.5 10*3/uL (0.1-1.0); MONO % 4.1 % (3.0-9.0); NEUT % 87.9 % (47.0-73.0); PLATELET COUNT AUTOMATED 219 10*3/uL (130-400); RED BLOOD COUNT 4.62 10*6/uL (4.50-5.90); RED CELL DISTRI WIDTH 13.1 % (0-14.5); WHITE BLOOD COUNT 11.4 10*3/uL (4.8-10.8)
[2017-03-09 07:20] LABS: ALBUMIN 3.9 gm/dl (3.1-4.5); ALKALINE PHOSPHATASE 63 U/L (45-117); CHLORIDE 103 mmol/L (98-107); CREATININE 1.22 mg/dL (0.70-1.30); FREE T4 1.03 ng/dl (0.76-1.46); PHOSPHOROUS 4.2 mg/dL (2.5-4.9); POTASSIUM 4.2 mmol/L (3.5-5.1); SGOT/AST 14 IU/L (3-35); SGPT/ALT 42 U/L (12-78); SODIUM 134 mmol/L (136-145); TOTAL PROTEIN 7.4 gm/dL (6.4-8.2)
[2017-03-09 07:23] LABS: BUN 22 mg/dl (7-24)
[2017-03-09 07:26] LABS: THYROID STIM HORMONE (HS) 0.181 uIU/ml (0.358-4.75)
[2017-03-09 07:29] LABS: ACT PARTIAL THROMBO TIME 22.9 SECONDS (20.8-31.5)
[2017-03-09 08:00] VITALS: BP 124/55
[2017-03-09 08:28] LABS: VITAMIN D, 25-HYDROXY 61.9 ng/mL (30-100)
[2017-03-09 12:00] VITALS: BP 121/64
[2017-03-09 16:00] VITALS: BP 117/65
[2017-03-09 20:00] VITALS: BP 128/64
[2017-03-10] VITALS: BP 121/58
[2017-03-10 06:45] LABS: BUN 29 mg/dl (7-24); CHLORIDE 102 mmol/L (98-107); CREATININE 1.29 mg/dL (0.70-1.30); POTASSIUM 4.9 mmol/L (3.5-5.1); SODIUM 136 mmol/L (136-145)
[2017-03-10 08:00] VITALS: BP 111/61
[2017-03-10 08:04] LABS: BASO % 0.1 % (0.0-1.0); HEMATOCRIT 43.7 % (42.0-52.0); HEMOGLOBIN 14.8 g/dl (14.0-18.0); LYMPH % 6.8 % (27.0-41.0); MEAN CELL VOLUME 93.8 fl (80.0-94.0); MEAN CORPUSCULAR HGB 31.8 pg (27.0-31.0); MEAN CORPUSCULAR HGB CONC 33.9 g/dl (33.0-37.0); MEAN PLATELET VOLUME 10.3 fl (9.6-12.3); MONO # 0.7 10*3/uL (0.1-1.0); MONO % 4.5 % (3.0-9.0); NEUT # 12.7 10*3/uL (2.3-7.9); NEUT % 87.8 % (47.0-73.0); PLATELET COUNT AUTOMATED 240 10*3/uL (130-400); RED BLOOD COUNT 4.66 10*6/uL (4.50-5.90); RED CELL DISTRI WIDTH 13.4 % (0-14.5); WHITE BLOOD COUNT 14.4 10*3/uL (4.8-10.8)
[2017-03-10 12:00] VITALS: BP 117/66
[2017-03-10 16:00] VITALS: BP 113/63
[2017-03-10 20:00] VITALS: BP 108/55
[2017-03-11] VITALS: BP 107/61
[2017-03-11 06:10] LABS: BASO % 0.1 % (0.0-1.0); HEMATOCRIT 44.2 % (42.0-52.0); HEMOGLOBIN 14.9 g/dl (14.0-18.0); LYMPH # 0.8 10*3/uL (1.3-4.4); LYMPH % 6.5 % (27.0-41.0); MEAN CELL VOLUME 95.3 fl (80.0-94.0); MEAN CORPUSCULAR HGB 32.1 pg (27.0-31.0); MEAN CORPUSCULAR HGB CONC 33.7 g/dl (33.0-37.0); MONO # 0.4 10*3/uL (0.1-1.0); MONO % 3.5 % (3.0-9.0); NEUT # 11.1 10*3/uL (2.3-7.9); NEUT % 88.4 % (47.0-73.0); PLATELET COUNT AUTOMATED 236 10*3/uL (130-400); RED BLOOD COUNT 4.64 10*6/uL (4.50-5.90); RED CELL DISTRI WIDTH 13.3 % (0-14.5); WHITE BLOOD COUNT 12.5 10*3/uL (4.8-10.8)
[2017-03-11 06:38] LABS: BUN 31 mg/dl (7-24); CHLORIDE 99 mmol/L (98-107); CREATININE 1.33 mg/dL (0.70-1.30); POTASSIUM 4.9 mmol/L (3.5-5.1); SODIUM 134 mmol/L (136-145)
[2017-03-11 08:00] VITALS: BP 130/74
[2017-03-11 16:00] VITALS: BP 125/71
[2017-03-11 20:00] VITALS: BP 111/60
[2017-03-12] VITALS: BP 130/69
[2017-03-12 06:17] LABS: HEMATOCRIT 44.5 % (42.0-52.0); HEMOGLOBIN 14.8 g/dl (14.0-18.0); MEAN CELL VOLUME 93.9 fl (80.0-94.0); MEAN CORPUSCULAR HGB 31.2 pg (27.0-31.0); MEAN CORPUSCULAR HGB CONC 33.3 g/dl (33.0-37.0); MEAN PLATELET VOLUME 10.3 fl (9.6-12.3); PLATELET COUNT AUTOMATED 216 10*3/uL (130-400); RED BLOOD COUNT 4.74 10*6/uL (4.50-5.90); WHITE BLOOD COUNT 12.4 10*3/uL (4.8-10.8)
[2017-03-12 06:43] LABS: CHLORIDE 100 mmol/L (98-107); POTASSIUM 4.8 mmol/L (3.5-5.1); SODIUM 136 mmol/L (136-145)
[2017-03-12 06:53] LABS: BUN 31 mg/dl (7-24); CREATININE 1.35 mg/dL (0.70-1.30); PHOSPHOROUS 3.6 mg/dL (2.5-4.9)
[2017-03-12 07:04] LABS: PLATELET SUFFICIENCY NORMAL (NORMAL); TOTAL CELLS COUNTED 100 #CELLS
[2017-03-12 08:00] VITALS: BP 87/66
[2017-03-12] MEDS ORDERED: LEVAQUIN750 M1 PO (10:42)
[2017-03-12] MEDS ORDERED: PREDNISONE10 MG PO (10:42)
[2017-03-12 12:00] VITALS: BP 113/54
== END 2017-03-12 17:28 | disposition home or self-care (01) | DRG 191 ==
LOC: ED 05:56 → 5E 07:28 → EDHOLD 07:28 → 5E 07:56
PROVIDERS: Internal Medicine; Internal Medicine Nephrology; Student in an Organized Health Care Education/Training Program
DX: J44.0 Chronic obstructive pulmonary disease with (acute) lower respiratory infection (principal); J96.10 Chronic respiratory failure, unspecified whether with hypoxia or hypercapnia; Z99.81 Dependence on supplemental oxygen; J45.901 Unspecified asthma with (acute) exacerbation; E87.1 Hypo-osmolality and hyponatremia; E11.65 Type 2 diabetes mellitus with hyperglycemia; D72.819 Decreased white blood cell count, unspecified; J20.9 Acute bronchitis, unspecified; N40.0 Benign prostatic hyperplasia without lower urinary tract symptoms; E78.5 Hyperlipidemia, unspecified; J64 Unspecified pneumoconiosis; J44.1 Chronic obstructive pulmonary disease with (acute) exacerbation; I10 Essential (primary) hypertension; E66.9 Obesity, unspecified; M19.90 Unspecified osteoarthritis, unspecified site; Z87.442 Personal history of urinary calculi; Z86.73 Personal history of transient ischemic attack (TIA), and cerebral infarction without residual deficits; Z88.8 Allergy status to other drugs, medicaments and biological substances; Z79.899 Other long term (current) drug therapy; Z79.82 Long term (current) use of aspirin; Z87.891 Personal history of nicotine dependence; Z82.49 Family history of ischemic heart disease and other diseases of the circulatory system; Z83.3 Family history of diabetes mellitus; Z82.5 Family history of asthma and other chronic lower respiratory diseases; Z83.518 Family history of other specified eye disorder; Z68.33 Body mass index [BMI] 33.0-33.9, adult; Z87.01 Personal history of pneumonia (recurrent); Z79.84 Long term (current) use of oral hypoglycemic drugs

== ENCOUNTER 2017-04-03 10:31 | Inpatient (IN) | payer MEDICARE ==
[~2017-04-03] VITALS: Ht 165.1 cm; Wt 90.0 kg
--- NOTE | ~2017-04-03 | PR ---
[place], [place] PROGRESS NOTE NAME: JASON SANTA [facility] #: [id number] UNIT #: [id number] ROOM: 404 DOCTOR: KELSEY RAMIREZ MD,NIKO BIRTHDATE: [birth year] DOS: 04/06/2017 SUBJECTIVE: He has been noted comfortable at this time, was planned for home discharge. He was noted quite anxious about his management of the hyperglycemia. The patient hopes that he could be with the steroids and would like to make sure he had been prescribed the insulin and to be taught about that prior to the discharge. Respiratory ashby, the patient has been doing very well for the patient at this time without any acute new changes. The shortness of breath, cough and sputum expectoration all improved progressively. OBJECTIVE: VITAL SIGNS: For the patient which was recorded, shows the temperature noted as normal, respiratory rate 18, heart rate 85, blood pressure 137/91. HEENT: Showed no acute change. NECK: Supple. CARDIOVASCULAR: S1, S2 audible. LUNGS: The patient was noted without any wheezing or crackles at present time. ABDOMEN: Soft, nontender. EXTREMITIES: With chronic moderate obesity. IMPRESSION: 1. The patient ____ of acute exacerbation of chronic obstructive pulmonary disease has been noted at this time. 2. History of pneumoconiosis. 3. Hyperglycemia secondary to corticosteroids. PLAN OF MANAGEMENT: No major changes in the treatment will be necessary. I agree for home discharge for this patient and the arrangement of insulin coverage and the diabetic teaching will be done today. Diabetic teaching will be given to this patient by the nurse who I also spoke with the her to make sure that will happen. Outpatient followup as previously. NIKO COLE MD CM:PNTRANS [id number] NIKO RAMIREZ MD 04/06/172117 interface
--- NOTE | ~2017-04-03 | PR ---
[place], [place] PROGRESS NOTE [id number] UN[facility] #: [id number] ROOM: 404 DOCTOR: KELSEY RAMIREZ MD,NIKO BIRTHDATE: [birth year] DOS: 04/05/2017 SUBJECTIVE: He has been noted with continued gradual reduction, improvement in the respiratory symptoms, shortness breath is improving. Coughing, wheezing which are resolving. There were symptoms of chest pain. OBJECTIVE: VITAL SIGNS: Normal temperature, respiratory rate 20, heart rate 74, blood pressure 121/79. The pulse oxygen saturation on 2 liters nasal cannula 94% saturation. GENERAL: Tgxt-zz-vyjnuwxh obesity. NECK: Supple. CARDIOVASCULAR: S1, S2 audible. LUNGS: Scattered wheezing. No crackles. ABDOMEN: Soft, nontender. EXTREMITIES: Without any edema. LABORATORY DATA: Blood culture on 18 of this month showed no bacterial growth. Preliminary findings are pending. CBC today shows mild leukocytosis. WBC count 11.3. IMPRESSION: 1. The patient with acute exacerbation of chronic obstructive pulmonary disease for the patient acute bronchitis may be viral in origin seemed to be resolving. 2. History of pneumoconiosis. PLAN OF TREATMENT: No changes in the plan of therapy from the pulmonary standpoint except reduction of the Solu-Medrol. Encouraged the patient about ambulation, other supportive therapy, plan of management and care. Discharge planning could be started for possible home discharge tomorrow morning depending on further improvement in the respiratory status and stability of other medical illnesses. NIKO COLE MD CM:PNTRANS [id number] NIKO RAMIREZ MD 04/05/172126 interface
--- NOTE | ~2017-04-03 | CON ---
[place], [place] REPORT OF CONSULTATION [id number] UN[facility] #: [id number] ROOM: 404 DOCTOR: NIKO EDWARDS MD BIRTHDATE: [birth year] DOS: 04/04/2017 CONSULTATION REQUESTED BY: Hospitalist services. REASON FOR CONSULTATION: Assess the patient for current exacerbation of COPD. HISTORY OF PRESENT ILLNESS: The patient was independently seen and examined in ubaq-[id number] encounter. History was confirmed. Physical examination was performed. All the labs were reviewed. Assessment management for this consultation were personally made for today's visit. The note done by the pediatrician/medical doctor was approved as well. A 66-year-old white male who has been known to have past history of pneumoconiosis as well as COPD and other problem has been admitted to the hospital on 04/03/2017. He presented to the hospital with symptoms of having increased shortness of breath for the past 2 to 3 days. The patient denies symptoms of chest pain or hemoptysis. He had been previously treated in the hospital for exacerbation of COPD. The patient completed dose of corticosteroids, antibiotic stated the symptoms returns. He denies symptoms of chest pain or hemoptysis. The patient denies symptoms of chest pain. The coughing has been noted with a small amount of whitish sputum expectoration. REVIEW OF SYSTEMS: Already completed by the pediatrician/medical doctor. Past medical history, surgical history, social history, family history: Reviewed with the patient since his consultation of 02/09/2017 and they were noted unchanged as well. MEDICATIONS: Administered was noted as use of IV Solu-Medrol, Lovenox for DVT prophylaxis, Mucinex 1200 mg b.i.d., sliding scale, DuoNeb q.4 hours, Levaquin, temazepam and other p.r.n. medications. DRUG ALLERGIES: The patient reported as allergies: 1. ZITHROMAX. 2. ZANTAC. PHYSICAL EXAMINATION: GENERAL: A 66-year-old white male who has been currently noted awake and alert without distress, sitting on the chair at the time of the assessment. Height of 6 feet 5 inches, weight of 198 pounds, BMI 33. VITAL SIGNS: Normal temperature, respiratory rate 18-20, heart rate of 87-94, blood pressure which was noted as 105/63-131/68, pulse oxygen saturation on 2 liters 96% saturation. HEENT: Head was atraumatic. Eyes nonicterus. NECK: Supple. CARDIOVASCULAR: S1, S2 audible. LUNGS: Showed diffuse reduction in breath sounds, mild expiratory wheezing without any crackles. ABDOMEN: Soft. Moderate obesity. Bowel sounds present. EXTREMITIES: No edema, clubbing, cyanosis. CENTRAL NERVOUS SYSTEM: Intact. MUSCULOSKELETAL: No deformity. [place], [place] REPORT OF CONSULTATION NAME: JASON SANTA UNIT #: [id number] ROOM: [facility] DOCTOR: KELSEY RAMIREZ MD,NIKO BIRTHDATE: [birth year] SKIN: No lesions or rashes. LABORATORY DATA: The CMP that was done yesterday in the Emergency Room, glucose 155. BUN and creatinine noted as normal. Influenza A and B nasal washing antigen negative. CMP: Glucose 253 with the remaining CMP normal. PT, PTT were normal today. CBC this morning was essentially noted normal except 93% segmented neutrophils. Two-view chest x-ray that was done on 03/24/2016 does not show any acute pulmonary infiltration at this time. IMPRESSION: 1. The patient has been noted acute recurrent exacerbation of chronic obstructive pulmonary disease, acute bronchitis, which could be viral in origin. The patient has been admitted to the hospital in end of February 2017 and also treated by the primary care attending for the similar symptoms. 2. The patient with moderate obesity as well. 3. History of pneumoconiosis. Lack of compliance with the medication for increased anxiety, participating current exacerbation cannot be completely excluded. There has not been any infection so far identified; however, the assessment was continued with monitoring other culture results. Other supportive therapy. PLAN OF MANAGEMENT: As previously. Usual care. Additional treatment changes will be done based on progression of the illness except reduction of Solu-Medrol 60 mg b.i.d. to 40 mg b.i.d. dosing. NIKO COLE MD CM:CONSTR:REPORT OF CONSULTATION 1247 04/05/17 0048 interface
--- NOTE | ~2017-04-03 | CON ---
[place], [place] REPORT OF CONSULTATION NAME: JASON SANTA UNIT #: [id number] ROOM: 404 DOCTOR: KAVITA NAYAK DO BIRTHDATE: [birth year] DOS: 04/04/2017 CHIEF COMPLAINT: Shortness of breath. HISTORY OF PRESENT ILLNESS: A 66-year-old male who came into the hospital with a complaint of shortness of breath that had initially started about 2-3 days prior to coming to the ER. The patient was recently discharged for similar symptoms and says that once his antibiotics and steroids completed their course, the shortness of breath again began to worsen again. The patient reports that the cough is productive with white sputum. The patient complained of associated fevers, chills and mild lightheadedness. The patient denied chest pain and headache and wheezing. 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 He has a long-standing history with Dr. Cole as well established in his practice and has multiple hospitalizations every year for these symptoms. PAST MEDICAL HISTORY: Arthritis, asthma, black lung, BPH, COPD, diabetes type 2, essential hypertension, hyperlipidemia, renal stones, obesity, pneumoconiosis, TIA, vitamin D deficiency. PAST SURGICAL HISTORY: The patient denies surgical history. SOCIAL HISTORY: The patient denies alcohol abuse, illicit drug use. Former smoker, has not smoked for many years. FAMILY HISTORY: Father secondary to bronchial asthma. Mother secondary to diabetes. Sister secondary to SD. Brother secondary to heart disease. Brother secondary to multiple open heart surgeries. ALLERGIES: The patient is allergic to AZITHROMYCIN and RANITIDINE and also noted ZANTAC. HOME MEDICATIONS: Albuterol, Proventil, Symbicort, vitamin D3, B12, Neurontin, Mucinex, oxygen 2 liters nasal cannula, simvastatin, tamsulosin and tiotropium bromide. REVIEW OF SYSTEMS: GENERAL: The patient denies fevers at this time, chills, weight loss, weight gain. HEENT: The patient denies redness, irritation, itching of the eyes, nasal discharge, sore throat, pain or itching in the ears. CARDIOVASCULAR: The patient denies chest pain, palpitations and lower extremity edema. RESPIRATORY: The patient complains of shortness of breath and cough with sputum production and dyspnea on exertion. The patient denies wheezing and stridor. ABDOMEN: The patient denies abdominal pain, nausea, vomiting, diarrhea, constipation, blood in the stool. GENITOURINARY: The patient denies any genitourinary symptoms. NEUROLOGIC: The patient denies ____, dizziness and headache. PSYCHIATRIC: The patient denies depression, anxiety and substance abuse. [place], [place] REPORT OF CONSULTATION NAME: JASON SANTA UNIT #: [id number] ROOM: [facility] DOCTOR: KAVITA NAYAK DO BIRTHDATE: [birth year] PHYSICAL EXAMINATION: VITAL SIGNS: Temperature 98.3, pulse 78, respirations 20, blood pressure 125/67, pulse ox is 96% on 2 liters nasal cannula. GENERAL APPEARANCE: The patient is alert, awake and oriented x 3, in no acute distress. HEENT: Head is normocephalic, atraumatic. Eyes are clear. No injection. Nares are patent. Mucous membranes are moist. NECK: Supple, nontender. HEART: Regular rate and rhythm. No murmurs, gallops or rubs. LUNGS: No rales, rhonchi or stridor. Positive wheezing and diminished in all lung pickens. ABDOMEN: Soft, nontender with positive bowel sounds. No organomegaly. EXTREMITIES: No clubbing, cyanosis, edema or erythema. NEUROLOGIC: Negative for focal deficits. SKIN: No rashes. No lesions. LABORATORY DATA: White count 7.3, hemoglobin 13.7, hematocrit 40.3, platelet count 203. Chemistries: Sodium 138, potassium 4.3, chloride 104, carbon dioxide 24, BUN 18, creatinine 1.15, glucose 253. Lactic acid 1.2, calcium 9.7, phosphorus 3.7, magnesium 2.1, total bilirubin 0.4, AST 11, ALT 26, alkaline phosphatase 66, total protein 7.1, albumin 3.4. Coagulation profile was within normal. Blood cultures remain negative. Flu swab negative for flu A and B. Chest x-ray from yesterday showed no focal pneumonia, no acute process. IMPRESSION: 1. Tracheobronchitis secondary to chronic obstructive pulmonary disease with acute exacerbation. 2. Acute bronchitis secondary to likely viral or bacterial infection. 3. Remote tobacco abuse. 4. 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 5. Essential hypertension. 6. Type 2 diabetes. PLAN OF CARE: The patient was started on 60 of Solu-Medrol b.i.d. The dose has been reduced to 40 b.i.d. as the patient has improved overnight. Continue with Levaquin. Continue with DuoNeb. The patient is in stable medical condition, likely will be ready for discharge tomorrow if the patient continues to improve at this rate. No other change in the current plan. We will reassess the patient in the morning. Thank you for this consult. KAVITA NAYAK DO [place], [place] REPORT OF CONSULTATION NAME: JASON SANTA UNIT #: [id number] ROOM: [facility] DOCTOR: KAVITA NAYAK DO BIRTHDATE: [birth year] NIKO COLE MD CM:CONSTR:REPORT OF CONSULTATION 1107 04/07/17 0433 interface
[2017-04-03 10:45] VITALS: BP 105/63
[2017-04-03 11:15] LABS: BASO % 0.2 % (0.0-1.0); EOS # 0.3 10*3/uL (0.0-0.4); EOS % 5.9 % (1.0-4.0); HEMATOCRIT 41.2 % (42.0-52.0); HEMOGLOBIN 14.1 g/dl (14.0-18.0); LYMPH % 17.9 % (27.0-41.0); MEAN CELL VOLUME 92.6 fl (80.0-94.0); MEAN CORPUSCULAR HGB 31.7 pg (27.0-31.0); MEAN CORPUSCULAR HGB CONC 34.2 g/dl (33.0-37.0); MEAN PLATELET VOLUME 9.7 fl (9.6-12.3); MONO # 0.5 10*3/uL (0.1-1.0); MONO % 9.1 % (3.0-9.0); NEUT # 3.8 10*3/uL (2.3-7.9); NEUT % 66.4 % (47.0-73.0); PLATELET COUNT AUTOMATED 170 10*3/uL (130-400); RED BLOOD COUNT 4.45 10*6/uL (4.50-5.90); RED CELL DISTRI WIDTH 13.1 % (0-14.5); WHITE BLOOD COUNT 5.7 10*3/uL (4.8-10.8)
[2017-04-03 11:31] LABS: ALBUMIN 3.5 gm/dl (3.1-4.5); ALKALINE PHOSPHATASE 67 U/L (45-117); BUN 15 mg/dl (7-24); CHLORIDE 104 mmol/L (98-107); SGOT/AST 13 IU/L (3-35); SGPT/ALT 28 U/L (12-78); SODIUM 139 mmol/L (136-145); TOTAL PROTEIN 7.1 gm/dL (6.4-8.2)
[2017-04-03 11:40] LABS: TROPONIN I < 0.015 ng/ml (<0.045)
[2017-04-03 12:04] VITALS: BP 111/69
[2017-04-03 12:36] VITALS: BP 112/73
[2017-04-03 13:10] VITALS: BP 114/71
[2017-04-03 16:00] VITALS: BP 102/67
[2017-04-03 20:00] VITALS: BP 123/59
[2017-04-04] VITALS: BP 131/68
[2017-04-04 06:36] LABS: HEMATOCRIT 40.3 % (42.0-52.0); HEMOGLOBIN 13.7 g/dl (14.0-18.0); MEAN CELL VOLUME 93.9 fl (80.0-94.0); MEAN CORPUSCULAR HGB 31.9 pg (27.0-31.0); PLATELET COUNT AUTOMATED 203 10*3/uL (130-400); RED BLOOD COUNT 4.29 10*6/uL (4.50-5.90); RED CELL DISTRI WIDTH 13.3 % (0-14.5); WHITE BLOOD COUNT 7.3 10*3/uL (4.8-10.8)
[2017-04-04 06:53] LABS: ALBUMIN 3.4 gm/dl (3.1-4.5); ALKALINE PHOSPHATASE 66 U/L (45-117); BUN 18 mg/dl (7-24); CHLORIDE 104 mmol/L (98-107); CREATININE 1.15 mg/dL (0.70-1.30); PHOSPHOROUS 3.7 mg/dL (2.5-4.9); POTASSIUM 4.3 mmol/L (3.5-5.1); SGOT/AST 11 IU/L (3-35); SGPT/ALT 26 U/L (12-78); SODIUM 138 mmol/L (136-145); TOTAL PROTEIN 7.1 gm/dL (6.4-8.2)
[2017-04-04 07:06] LABS: ACT PARTIAL THROMBO TIME 24.1 SECONDS (20.8-31.5)
[2017-04-04 07:22] LABS: BASOPHILS 1 % (0-1); BURR CELLS FEW; PLATELET SUFFICIENCY NORMAL (NORMAL); TOTAL CELLS COUNTED 100 #CELLS
[2017-04-04 08:00] VITALS: BP 125/67
[2017-04-04 12:00] VITALS: BP 140/94
[2017-04-04 16:00] VITALS: BP 136/72
[2017-04-04 20:34] VITALS: BP 114/61
[2017-04-05] VITALS: BP 114/65
[2017-04-05 07:28] LABS: BASO % 0.1 % (0.0-1.0); HEMATOCRIT 39.9 % (42.0-52.0); HEMOGLOBIN 13.4 g/dl (14.0-18.0); LYMPH # 0.7 10*3/uL (1.3-4.4); LYMPH % 5.9 % (27.0-41.0); MEAN CELL VOLUME 93.2 fl (80.0-94.0); MEAN CORPUSCULAR HGB 31.3 pg (27.0-31.0); MEAN CORPUSCULAR HGB CONC 33.6 g/dl (33.0-37.0); MEAN PLATELET VOLUME 9.9 fl (9.6-12.3); MONO # 0.5 10*3/uL (0.1-1.0); MONO % 4.1 % (3.0-9.0); NEUT # 10.1 10*3/uL (2.3-7.9); NEUT % 89.4 % (47.0-73.0); PLATELET COUNT AUTOMATED 219 10*3/uL (130-400); RED BLOOD COUNT 4.28 10*6/uL (4.50-5.90); RED CELL DISTRI WIDTH 13.7 % (0-14.5); WHITE BLOOD COUNT 11.3 10*3/uL (4.8-10.8)
[2017-04-05 08:00] VITALS: BP 122/62
[2017-04-05 12:00] VITALS: BP 121/79
[2017-04-05 16:00] VITALS: BP 118/64
[2017-04-05 20:00] VITALS: BP 120/72
[2017-04-06] VITALS: BP 121/67
[2017-04-06 08:00] VITALS: BP 124/72
[2017-04-06 12:00] VITALS: BP 137/91
[2017-04-06] MEDS ORDERED: INSULIN SYRING1 EA33 MC (12:06)
[2017-04-06] MEDS ORDERED: PREDNISONE10 MG PO (12:06)
[2017-04-06] MEDS ORDERED: LEVOFLOXACIN500 MG PO (12:06)
[2017-04-06] MEDS ORDERED: Insulin Lispro, Reco SC (12:06)
== END 2017-04-06 15:00 | disposition home or self-care (01) | DRG 190 ==
LOC: ED 10:31 → 4E 11:56 → EDHOLD 11:56 → 4E 12:16
PROVIDERS: Family Medicine; Nurse Practitioner Family
DX: J44.0 Chronic obstructive pulmonary disease with (acute) lower respiratory infection (principal); J18.9 Pneumonia, unspecified organism; Z99.81 Dependence on supplemental oxygen; E11.65 Type 2 diabetes mellitus with hyperglycemia; I10 Essential (primary) hypertension; N40.1 Benign prostatic hyperplasia with lower urinary tract symptoms; J44.1 Chronic obstructive pulmonary disease with (acute) exacerbation; M19.90 Unspecified osteoarthritis, unspecified site; J60 Coalworker's pneumoconiosis; E78.5 Hyperlipidemia, unspecified; E55.9 Vitamin D deficiency, unspecified; T38.0X5A Adverse effect of glucocorticoids and synthetic analogues, initial encounter; J20.9 Acute bronchitis, unspecified; E66.09 Other obesity due to excess calories; Y92.89 Other specified places as the place of occurrence of the external cause; Z87.891 Personal history of nicotine dependence; Z68.33 Body mass index [BMI] 33.0-33.9, adult; Z87.442 Personal history of urinary calculi; Z79.899 Other long term (current) drug therapy; Z88.1 Allergy status to other antibiotic agents; Z88.8 Allergy status to other drugs, medicaments and biological substances; Z82.5 Family history of asthma and other chronic lower respiratory diseases; Z83.3 Family history of diabetes mellitus; Z82.49 Family history of ischemic heart disease and other diseases of the circulatory system

== ENCOUNTER 2017-04-29 22:59 | Inpatient (IN) | payer MEDICARE ==
[~2017-04-29] VITALS: Ht 162.6 cm; Wt 89.4 kg
--- NOTE | ~2017-04-29 | EKG ---
[place], [place] ELECTROCARDIOGRAM REPORT NAME: JASON SANTA UNIT #: [id number] ROOM: [facility] DOCTOR: KELSEY RAMIREZ MD,NIKO BIRTHDATE: [birth year] DOS: 04/29/2017 Electrocardiogram done on 04/30/2017 at 11:22 p.m. Normal sinus rhythm noted. Heart rate of 69 beats per minute with nonspecific ST-T changes. NIKO COLE MD CM:EKGRPT:ELECTROCARDIOGRAM REPORT 1348 1609 NIKO RAMIREZ MD
--- NOTE | ~2017-04-29 | PR ---
[place], [place] PROGRESS NOTE [id number] UNIT #: [id number] ROOM: 505 DOCTOR: KELSEY RAMIREZ MD,NIKO BIRTHDATE: [birth year] DOS: 05/04/2017 SUBJECTIVE: He has been noted comfortable at this time with further reduction in respiratory symptom noted, ambulating without any shortness of breath, chest pain or cough. OBJECTIVE: VITAL SIGNS: For the patient which has been recorded shows normal temperature, respiratory rate 18, heart rate of 61, blood pressure of 127/72. Pulse oxygen saturation of the patient noted on 2 liters 96% saturation. HEENT: Examination shows no acute change. NECK: Supple. CARDIOVASCULAR: S1, S2 is audible. LUNGS: The patient was noted without any wheezing or crackles today. ABDOMEN: Soft, nontender. EXTREMITIES: Without any acute edema. IMPRESSION: Progressive resolution of the patient with acute exacerbation of chronic obstructive pulmonary disease, acute tracheobronchitis with marked improvement noted in the last couple of days. PLAN OF TREATMENT: The patient may be discharged home. The patient from the pulmonary standpoint tapering dose of prednisone, oral antibiotics. Continue previous home medication of COPD and outpatient followup to be scheduled post-discharge in a couple of weeks. NIKO COLE MD CM:PNTRANS 1401 [id number] NIKO RAMIREZ MD 05/05/17 0119 interface
--- NOTE | ~2017-04-29 | CON ---
[place], [place] REPORT OF CONSULTATION NAME: JASON SANTA [facility] #: [id number] UNIT #: [id number] ROOM: 505 DOCTOR: NIKO EDWARDS MD BIRTHDATE: [birth year] DOS: 05/01/2017 CONSULTATION REQUESTED BY: Hospitalist service. REASON FOR CONSULTATION: Assessment of recurrence of acute exacerbation of chronic obstructive pulmonary disease. HISTORY OF PRESENT ILLNESS: This is a 66-year-old white male, very well known to me. The patient has been hospitalized in the past 3 months, I believe twice. He has been previously treated in this hospital for acute exacerbation of chronic obstructive pulmonary disease and then discharged home. The patient was treated in the hospital and discharged on 04/06/2017. He presented back to the Emergency Room and in the hospital on 04/30/2017. The patient complains of having increased shortness of breath occurring on 04/29/2017. The symptoms have been noted with gradual increase. The patient was also noted symptoms of chest tightness. He does complain of cough, which was noted intermittent and nonproductive with wheezing. The patient stated in the ER that his symptoms have been noted progressive and worsening, he decided to come into the Emergency Room. He has been brought to the hospital via the Emergency Room. The patient was given DuoNeb treatment by EMS as well. He denies any symptoms of chest pain or any hemoptysis. The patient denies symptoms of hemoptysis, denies dizziness, headache, diplopia, syncopal episodes or tingling sensation, dysuria, suprapubic pain, hematuria Remaining systems were reviewed and they were noted all negative. REVIEW OF SYSTEMS: CONSTITUTIONAL: Fatigue and tiredness were noted for this patient. There was no fever or chills reported by the patient. EYES: Denies burning, redness or tenderness. EARS, NOSE, THROAT: Denies sore throat, hoarseness, otalgia, postnasal drainage or epistaxis. CARDIOVASCULAR: Denies anginal pain, edema of the lower extremities. GASTROINTESTINAL: Denies dysphagia, nausea, vomiting, diarrhea, abdominal pain, hematemesis, melena or hematochezia. SKIN: Denies lesions or rashes. MUSCULOSKELETAL: Denies acute joint pain, redness or tenderness. GENITOURINARY: Denies dysuria, suprapubic pain or hematuria. CENTRAL NERVOUS SYSTEM: General weakness without any dizziness, headache, diplopia or syncopal episodes. Remaining systems were reviewed with the patient, they were noted all negative. PAST MEDICAL HISTORY: 1. Hospitalization in this hospital for 3 days, discharged the patient on 04/06/2017 for the medical management of acute exacerbation of COPD at that time. 2. Centrilobular emphysema. 3. Essential hypertension. 4. Type 2 diabetes mellitus. [place], [place] REPORT OF CONSULTATION NAME: JASON ASNTA UNIT #: [id number] ROOM: [facility] DOCTOR: KELSEY RAMIREZ MD,[facility] BIRTHDATE: [birth year] 5. Pneumoconiosis. 6. Nephrolithiasis. PAST SURGICAL HISTORY: Noted therapeutic bronchoscopy that was done during his admission in January 2017. SOCIAL HISTORY: The patient is , has 2 children. Denies history of alcohol use or illicit drug use. Tobacco use was noted with use of tobacco that was discontinued approximately 40 years ago. He has been noted with inhalation of coal dust with diagnosis of pneumoconiosis known previously. FAMILY HISTORY: The patient's father at 60 years of complication of tuberculosis. Mother at 50 years of complication of diabetes mellitus. HOME MEDICATIONS: Which were reported by the patient in the medication reconciliation were noted as use of Ventolin 2.5 mg nebulizer q.i.d., Proventil HFA inhaler p.r.n. use, Symbicort 160/4.5 one puff daily, Spiriva 2.5 mcg 2 inhalations daily, oxygen supplementation 2 liters nasal cannula, vitamin D3 1000 international units daily, gabapentin 100 mg p.o. t.i.d., Mucinex 600 mg p.o. b.i.d., simvastatin 80 mg daily, Flomax 0.4 mg at bedtime and sliding scale insulin coverage. The patient has been taking Symbicort 2 puffs twice a day, which is mistyped in the medication reconciliation list. DRUG ALLERGIES: NOTED ALLERGY TO ZITHROMAX AND ZANTAC. PHYSICAL EXAMINATION: GENERAL: A 66-year-old male, who has been currently sitting on the bed without any acute distress. Height of 5 feet 4 inches, weight 197 pounds, BMI 33.8. VITAL SIGNS: For the patient which has been recorded shows a normal temperature, respiratory rate of 18-20, heart rate of 88-71, blood pressure 124/78 to 140/82. The pulse oxygen saturation of the patient on 2 liters at 92% saturation. HEENT: Showed head was atraumatic. Eyes nonicterus. NECK: Supple. CARDIOVASCULAR: S1, S2 audible. LUNGS: The patient was noted with moderate decreased breath sounds with mild expiratory wheezing without any crackles. ABDOMEN: Soft, nontender. EXTREMITIES: Without any edema. MUSCULOSKELETAL: Without any acute deformities. SKIN: No lesions or rashes. CENTRAL NERVOUS SYSTEM: Cranial nerves 2-12 intact. No focal deficit. LABORATORY DATA: CBC for this patient in the Emergency Room on 04/29/2017: Hemoglobin 12.7, WBC count and platelet count normal. CMP of the patient on 04/29/2017L Normal BUN and creatinine, glucose mildly elevated at 126. Normal troponin. The second and the third set of troponin of the patient on 04/30/2017 was normal. CBC of the patient on 04/30/2017 essentially remained unchanged, the same with normal WBC count. The CBC this morning with WBC 12.4. BMP this morning: Glucose 232, normal BUN and creatinine, lactic acid 2.9-4.1. The one [place], [place] REPORT OF CONSULTATION [facility]: [facility] [id number] UNIT #: [id number] ROOM: [facility] DOCTOR: KELSEY RAMIREZ MD,[facility] BIRTHDATE: [birth year] view chest x-ray of the patient that was done: No visible acute pulmonary infiltration, no changes from the chest x-ray of the patient which was done on 04/03/2017. IMPRESSION: 1. The patient has been currently admitted to the hospital, noted with recurrence of acute exacerbation of chronic obstructive pulmonary disease. Some of the symptoms may be related to the possibility of underlying general anxiety disorder as well, cannot be completely excluded. Rule out any occult infection in the pulmonary system as well. 2. History of pneumoconiosis, known previously. 3. The patient with type 2 diabetes mellitus with further hyperglycemia related to the use of the current antibiotics. 4. Lactic acidosis, most likely related to the excessive administration of the bronchodilators. PLAN OF MANAGEMENT: CT scan of the chest will be ordered for this patient at this time for further assessment of the current symptoms and management. Management of hyperglycemia for the patient with additional coverage of insulin will be continued. Also, continue the bronchodilator for the patient for medical management of the wheezing. Supportive therapy, plan of management and other care. Continue current antibiotic for the patient at this time. Usual care. Order viral assessment for the patient with outpatient nasopharyngeal wash. Additional changes in treatment for the patient will be ordered based on the new data availability, no changes in any condition. NIKO COLE MD CM:CONSTR:REPORT OF CONSULTATION 1121 05/03/17 0145 interface
--- NOTE | ~2017-04-29 | PR ---
[place], [place] PROGRESS NOTE NAME: JASON SANTA UNIT #: [id number] ROOM: 505 DOCTOR: NIKO EDWARDS MD BIRTHDATE: [birth year] DOS: 05/02/2017 SUBJECTIVE: The patient has been noted comfortable at this time without any acute distress, resting on his bed. Denies symptoms of chest pain. Shortness of breath has been improving from previously. Small amount of sputum expectoration noted as per the patient. OBJECTIVE: VITAL SIGNS: For the patient, which have been recorded showed normal temperature, respiratory rate 18, heart rate 79, blood pressure 131/60. The pulse oxygen saturation on 2 liters is 91% saturation. HEENT: No acute change. NECK: Supple. CARDIOVASCULAR: S1, S2 audible. LUNGS: The patient was noted with mild to moderate expiratory wheezing, no crackles. ABDOMEN: Soft, nontender. EXTREMITIES: Without any edema. CENTRAL NERVOUS SYSTEM: Cranial nerves 2-12 intact. MUSCULOSKELETAL: Without acute deformities. SKIN: Noted without any lesions or rashes. LABORATORY DATA: CBC, WBC count 13.2 and the BMP: Glucose 247. The patient had a CTA of the chest that was done for this patient yesterday was reviewed, shows evidence of basilar area of atelectasis and scarring without any abnormal pulmonary nodule for this patient or pulmonary embolism. IMPRESSION AND PLAN: 1. The patient who has been currently noted with acute exacerbation of chronic obstructive pulmonary disease with acute tracheobronchitis. 2. Basilar area of atelectasis. 3. History of pneumoconiosis for this patient was noted without any significant pulmonary fibrosis as some scarring area noted in the lungs for this patient. Small lingular area of atelectasis was also noted. 4. Moderate obesity as well. The scarring for the patient is most likely related to possibility of previous acute pneumonia. At this time, the patient will be continued on the bronchodilators, oxygen supplementation, corticosteroids and other treatment plan as previously. Usual care. [place], [place] PROGRESS NOTE NAME: JASON SANTA UNIT #: [id number] ROOM: 505 DOCTOR: NIKO EDWARDS MD BIRTHDATE: [birth year] NIKO COLE MD CM:PNKATIE [id number] NIKO RAMIREZ MD 05/03/17 0146 interface
--- NOTE | ~2017-04-29 | PR ---
[place], [place] PROGRESS NOTE [id number] UNIT #: [id number] ROOM: 505 DOCTOR: KELSEY RAMIREZ MD,NIKO BIRTHDATE: [birth year] DOS: 05/03/2017 SUBJECTIVE: The patient was noted comfortable at this time without any acute distress. He has been noted comfortable at this time. At the present time, the shortness of breath and wheezing other symptoms, has been improving gradually. OBJECTIVE: VITAL SIGNS: For the patient, which was recorded. The patient shows the temperature of the patient was noted as normal. The respiratory rate of the patient recorded as 15, heart rate 70, blood, blood pressure 127/73-130/79. Pulse ox 94% saturation. HEENT: Examination shows head was atraumatic. Eyes nonicterus. NECK: Supple. CARDIOVASCULAR: S1, S2 audible. LUNGS: Noted without any wheeze or crackles at the present time. ABDOMEN: Soft, nontender. LABORATORY DATA: CMP this morning, glucose 136, BUN and creatinine was normal. Rest of CMP normal. CBC, mild anemia, otherwise normal. IMPRESSION: 1. Resolving acute exacerbation of chronic obstructive pulmonary disease with the patient with acute tracheobronchitis. 2. History of pulmonary fibrosis with pneumoconiosis. PLAN OF TREATMENT: Continue current plan of therapy at this time without any changes. Consider discharge in the next 24 hours to home setting with oral tapering prednisone, antibiotics and to continue previous medications, COPD. The usual care, plan of management and therapies. NIKO COLE MD CM:PNTRANS [id number] NIKO RAMIREZ MD 05/03/17 1458 interface
[~2017-04-29 22:59] MED LIST changes: +INSULIN SYRING1 EA33 MC; +Insulin Lispro, Reco SC
[2017-04-29 23:02] VITALS: BP 129/77
[2017-04-29 23:03] VITALS: BP 123/63
[2017-04-29 23:30] VITALS: BP 106/53
[2017-04-29 23:41] LABS: BASO % 0.4 % (0.0-1.0); EOS # 0.4 10*3/uL (0.0-0.4); EOS % 6.6 % (1.0-4.0); HEMATOCRIT 38.2 % (42.0-52.0); HEMOGLOBIN 12.7 g/dl (14.0-18.0); LYMPH # 1.3 10*3/uL (1.3-4.4); LYMPH % 23.8 % (27.0-41.0); MEAN CELL VOLUME 94.8 fl (80.0-94.0); MEAN CORPUSCULAR HGB 31.5 pg (27.0-31.0); MEAN CORPUSCULAR HGB CONC 33.2 g/dl (33.0-37.0); MEAN PLATELET VOLUME 10.2 fl (9.6-12.3); MONO # 0.6 10*3/uL (0.1-1.0); MONO % 11.4 % (3.0-9.0); NEUT # 3.1 10*3/uL (2.3-7.9); NEUT % 57.4 % (47.0-73.0); PLATELET COUNT AUTOMATED 154 10*3/uL (130-400); RED BLOOD COUNT 4.03 10*6/uL (4.50-5.90); RED CELL DISTRI WIDTH 13.8 % (0-14.5); WHITE BLOOD COUNT 5.4 10*3/uL (4.8-10.8)
[2017-04-29 23:51] LABS: ACT PARTIAL THROMBO TIME 24.4 SECONDS (20.8-31.5)
[2017-04-30] VITALS (9 sets, daily range): BP systolic 108–150; BP diastolic 58–86
[2017-04-30] LABS: ALBUMIN 3.3 gm/dl (3.1-4.5); ALKALINE PHOSPHATASE 53 U/L (45-117); BUN 11 mg/dl (7-24); CHLORIDE 107 mmol/L (98-107); POTASSIUM 3.8 mmol/L (3.5-5.1); SGOT/AST 22 IU/L (3-35); SGPT/ALT 43 U/L (12-78); SODIUM 143 mmol/L (136-145); TOTAL PROTEIN 6.4 gm/dL (6.4-8.2)
[2017-04-30 00:02] LABS: TROPONIN I < 0.015 ng/ml (<0.045)
[2017-04-30 04:16] LABS: HEMATOCRIT 38.3 % (42.0-52.0); HEMOGLOBIN 12.7 g/dl (14.0-18.0); MEAN CELL VOLUME 94.8 fl (80.0-94.0); MEAN CORPUSCULAR HGB 31.4 pg (27.0-31.0); MEAN CORPUSCULAR HGB CONC 33.2 g/dl (33.0-37.0); MEAN PLATELET VOLUME 9.9 fl (9.6-12.3); PLATELET COUNT AUTOMATED 141 10*3/uL (130-400); RED BLOOD COUNT 4.04 10*6/uL (4.50-5.90); RED CELL DISTRI WIDTH 13.8 % (0-14.5)
[2017-04-30 04:28] LABS: BUN 11 mg/dl (7-24); CHLORIDE 105 mmol/L (98-107); PHOSPHOROUS 2.3 mg/dL (2.5-4.9); POTASSIUM 4.1 mmol/L (3.5-5.1); SODIUM 139 mmol/L (136-145)
[2017-04-30 04:38] LABS: TOTAL CELLS COUNTED 100 #CELLS
[2017-04-30 04:39] LABS: PLATELET SUFFICIENCY NORMAL (NORMAL)
[2017-05-01] VITALS: BP 137/69
[2017-05-01 08:00] VITALS: BP 124/78
[2017-05-01 09:14] LABS: HEMATOCRIT 40.4 % (42.0-52.0); HEMOGLOBIN 13.1 g/dl (14.0-18.0); MEAN CORPUSCULAR HGB 31.1 pg (27.0-31.0); MEAN CORPUSCULAR HGB CONC 32.4 g/dl (33.0-37.0); MEAN PLATELET VOLUME 10.6 fl (9.6-12.3); PLATELET COUNT AUTOMATED 171 10*3/uL (130-400); RED BLOOD COUNT 4.21 10*6/uL (4.50-5.90); RED CELL DISTRI WIDTH 14.3 % (0-14.5); WHITE BLOOD COUNT 12.4 10*3/uL (4.8-10.8)
[2017-05-01 09:24] LABS: BUN 16 mg/dl (7-24); CHLORIDE 105 mmol/L (98-107); CREATININE 1.06 mg/dL (0.70-1.30); POTASSIUM 4.2 mmol/L (3.5-5.1); SODIUM 139 mmol/L (136-145)
[2017-05-01 09:35] LABS: BURR CELLS MODERATE; PLATELET SUFFICIENCY NORMAL (NORMAL); TOTAL CELLS COUNTED 100 #CELLS
[2017-05-01 11:21] VITALS: BP 128/68
[2017-05-01 16:00] VITALS: BP 139/73
[2017-05-01 20:00] VITALS: BP 129/63
[2017-05-02] VITALS: BP 117/62
[2017-05-02 07:46] LABS: HEMATOCRIT 39.5 % (42.0-52.0); MEAN CORPUSCULAR HGB CONC 32.9 g/dl (33.0-37.0); MEAN PLATELET VOLUME 10.2 fl (9.6-12.3); PLATELET COUNT AUTOMATED 170 10*3/uL (130-400); RED CELL DISTRI WIDTH 14.3 % (0-14.5); WHITE BLOOD COUNT 13.2 10*3/uL (4.8-10.8)
[2017-05-02 08:00] VITALS: BP 131/60
[2017-05-02 08:02] LABS: BUN 21 mg/dl (7-24); CHLORIDE 104 mmol/L (98-107); CREATININE 1.14 mg/dL (0.70-1.30); POTASSIUM 4.1 mmol/L (3.5-5.1); SODIUM 138 mmol/L (136-145)
[2017-05-02 08:28] LABS: BURR CELLS FEW; PLATELET SUFFICIENCY NORMAL (NORMAL); TOTAL CELLS COUNTED 100 #CELLS
[2017-05-02 12:00] VITALS: BP 123/67
[2017-05-02 16:00] VITALS: BP 121/62
[2017-05-02 20:00] VITALS: BP 129/75
[2017-05-03] VITALS: BP 129/70
[2017-05-03 05:57] LABS: HEMATOCRIT 40.4 % (42.0-52.0); HEMOGLOBIN 13.5 g/dl (14.0-18.0); LYMPH # 0.9 10*3/uL (1.3-4.4); LYMPH % 8.3 % (27.0-41.0); MEAN CELL VOLUME 94.2 fl (80.0-94.0); MEAN CORPUSCULAR HGB 31.5 pg (27.0-31.0); MEAN CORPUSCULAR HGB CONC 33.4 g/dl (33.0-37.0); MEAN PLATELET VOLUME 10.2 fl (9.6-12.3); MONO # 0.6 10*3/uL (0.1-1.0); MONO % 6.2 % (3.0-9.0); NEUT # 8.7 10*3/uL (2.3-7.9); NEUT % 84.4 % (47.0-73.0); PLATELET COUNT AUTOMATED 178 10*3/uL (130-400); RED BLOOD COUNT 4.29 10*6/uL (4.50-5.90); RED CELL DISTRI WIDTH 14.1 % (0-14.5); WHITE BLOOD COUNT 10.3 10*3/uL (4.8-10.8)
[2017-05-03 06:27] LABS: CHLORIDE 99 mmol/L (98-107); POTASSIUM 4.1 mmol/L (3.5-5.1); SODIUM 137 mmol/L (136-145)
[2017-05-03 06:33] LABS: ALBUMIN 3.5 gm/dl (3.1-4.5); ALKALINE PHOSPHATASE 51 U/L (45-117); BUN 23 mg/dl (7-24); CREATININE 1.23 mg/dL (0.70-1.30); PHOSPHOROUS 3.4 mg/dL (2.5-4.9); SGOT/AST 15 IU/L (3-35); SGPT/ALT 32 U/L (12-78); TOTAL PROTEIN 6.5 gm/dL (6.4-8.2)
[2017-05-03 08:00] VITALS: BP 130/79
[2017-05-03 12:00] VITALS: BP 127/73
[2017-05-03 16:00] VITALS: BP 105/81
[2017-05-03 20:00] VITALS: BP 130/66
[2017-05-04] VITALS: BP 139/61
[2017-05-04 08:00] VITALS: BP 125/74
[2017-05-04 12:00] VITALS: BP 127/72
[2017-05-04] MEDS ORDERED: OMEPRAZOLE D/R20 MG PO (13:44)
[2017-05-04] MEDS ORDERED: LEVOFLOXACIN500 MG PO ×2 (13:44→14:39)
[2017-05-04] MEDS ORDERED: PREDNISONE10 MG PO ×2 (13:45→14:39)
[2017-05-04] MEDS ORDERED: OMEPRAZOLE40 MG PO (14:39)
[2017-05-06 03:08] LABS: ADENOVIRUS Negative (Negative); INFLUENZA A Negative (Negative); INFLUENZA B Negative (Negative); METAPNEUMOVIRUS Negative (Negative); PARAINFLUENZA 1 Negative (Negative); PARAINFLUENZA 2 Negative (Negative); PARAINFLUENZA 3 Negative (Negative); RHINOVIRUS Negative (Negative); RSV A Negative (Negative); RSV B Negative (Negative)
== END 2017-05-04 16:30 | disposition home or self-care (01) | DRG 871 ==
LOC: ED 22:59 → 5E 04-30 00:27 → EDHOLD 04-30 00:27 → 5E 04-30 00:37
PROVIDERS: Family Medicine; Internal Medicine; Internal Medicine Critical Care Medicine; Student in an Organized Health Care Education/Training Program
DX: A41.9 Sepsis, unspecified organism (principal); J18.9 Pneumonia, unspecified organism; E87.2 Acidosis; E44.1 Mild protein-calorie malnutrition; E83.39 Other disorders of phosphorus metabolism; E11.9 Type 2 diabetes mellitus without complications; D64.9 Anemia, unspecified; J44.0 Chronic obstructive pulmonary disease with (acute) lower respiratory infection; J44.1 Chronic obstructive pulmonary disease with (acute) exacerbation; R65.20 Severe sepsis without septic shock; D72.810 Lymphocytopenia; I10 Essential (primary) hypertension; J60 Coalworker's pneumoconiosis; M19.90 Unspecified osteoarthritis, unspecified site; N40.0 Benign prostatic hyperplasia without lower urinary tract symptoms; J20.9 Acute bronchitis, unspecified; E78.5 Hyperlipidemia, unspecified; E66.09 Other obesity due to excess calories; Z87.442 Personal history of urinary calculi; Z68.33 Body mass index [BMI] 33.0-33.9, adult; Z86.73 Personal history of transient ischemic attack (TIA), and cerebral infarction without residual deficits; Z79.4 Long term (current) use of insulin; Z79.899 Other long term (current) drug therapy; Z87.891 Personal history of nicotine dependence; Z88.1 Allergy status to other antibiotic agents; Z88.8 Allergy status to other drugs, medicaments and biological substances; Z82.5 Family history of asthma and other chronic lower respiratory diseases; Z83.3 Family history of diabetes mellitus; Z82.49 Family history of ischemic heart disease and other diseases of the circulatory system

== ENCOUNTER 2017-07-05 23:52 | Inpatient (IN) | payer MEDICARE, OTHER ==
[~2017-07-05] VITALS: Ht 162.5 cm; Wt 92.2 kg
--- NOTE | ~2017-07-05 | EKG ---
[place], [place] ELECTROCARDIOGRAM REPORT NAME: JASON SANTA UNIT #: [id number] ROOM: 506 DOCTOR: KELSEY RAMIREZ MD,NIKO BIRTHDATE: [birth year] DOS: 07/07/2017 The date of echocardiogram for the patient 07/06/2017 done at 12:23 a.m. Normal sinus rhythm noted with heart rate of 83 beats per minute. Nonspecific ST-T changes noted. The patient was reviewed and does not show any major abnormality except nonspecific changes of ST-T segments. NIKO COLE MD CM:EKGRPT:ELECTROCARDIOGRAM REPORT [id number] 1930 NIKO RAMIREZ MD
--- NOTE | ~2017-07-05 | PR ---
[place], [place] PROGRESS NOTE [id number] UNIT #: [id number] ROOM: 506 DOCTOR: KELSEY RAMIREZ MD,NIKO BIRTHDATE: [birth year] DOS: 07/10/2017 SUBJECTIVE: The patient had been noted comfortable at this time without any acute distress. His coughing has been subsiding. There are no symptoms of chest pain or hemoptysis. Denies symptoms of nausea or vomiting. OBJECTIVE: VITAL SIGNS: Normal temperature, respiratory rate 20, heart rate 81, blood pressure 140/65. Pulse oxygen saturation on 4 liters nasal cannula 92% saturation. HEENT: Examination shows head was atraumatic. Eyes nonicterus. NECK: Supple. CARDIOVASCULAR: S1, S2 is audible. LUNGS: The patient noted without any wheezing or crackles at the present time. ABDOMEN: Soft, nontender. EXTREMITIES: Without any acute edema. IMPRESSION: 1. The patient with resolving bronchial asthma ____ with the acute bronchitis. 2. History of pneumoconiosis. PLAN OF TREATMENT: The patient could be considered for home discharge today on tapering prednisone and other oral medications. Outpatient followup is scheduled post-discharge. NIKO COLE MD CM:PNTRANS [id number] NIKO RAMIREZ MD 07/10/17 1234 interface
--- NOTE | ~2017-07-05 | CON ---
[place], [place] REPORT OF CONSULTATION NAME: JASON SANTA [facility] #: [id number] UNIT #: [id number] ROOM: 506 DOCTOR: NIKO EDWARDS MD BIRTHDATE: [birth year] DOS: 07/06/2017 PULMONARY CONSULTATION, EVALUATION AND MANAGEMENT CONSULTATION REQUESTED BY: Hospitalist services. REASON FOR CONSULTATION: For assessment of the current acute exacerbation of chronic obstructive pulmonary disease. HISTORY OF PRESENT ILLNESS: This is a 66-year-old white male known to me from the past, has been noted frequent hospitalization. The patient has been treated and discharged on 04/2017 for the medical management of acute exacerbation of COPD. He presented to the Emergency Room for the patient this morning as he has been noted with symptoms of increased shortness of breath, which has been described at home. The symptoms have been noted with gradual worsening. The patient stated that he has cold-like symptoms at this time at home, which was also flu-like symptoms. He stated the symptoms has not been improving. Later on, he developed symptoms of coughing with productive white sputum. Denies any symptoms of chest pain, but complains of wheezing as well. The patient denies symptoms of hemoptysis. REVIEW OF SYSTEMS: CONSTITUTIONAL: He does complain of some fatigue and tiredness. There were no symptoms of fever or chills reported. EYES: Denies any burning, redness, or tenderness. EARS, NOSE, THROAT SYMPTOMS: Denies sore throat, hoarseness, otalgia, postnasal drainage or epistaxis. CARDIOVASCULAR: Denied angina pain, edema or pain in lower extremity. GASTROINTESTINAL: Denies abnormal weight loss, dysphagia, nausea, vomiting, diarrhea, abdominal pain, hematemesis, melena, or hematochezia. SKIN: Denies abnormal lesions or rashes on the skin. MUSCULOSKELETAL: No acute joint pain, redness, tenderness or deformities. GENITOURINARY SYMPTOMS: No dysuria, suprapubic pain or hematuria. CENTRAL NERVOUS SYSTEM: Denies symptoms of syncopal episode, tingling sensations. Remaining systems for the patient were reviewed, they were noted all negative. PAST MEDICAL HISTORY: 1. Centrilobular emphysema. 2. Pneumoconiosis. 3. Essential hypertension. 4. Type 2 diabetes mellitus. 5. Nephrolithiasis. 6. Bronchial asthma, uncomplicated, moderate persistent severity. PAST SURGICAL HISTORY: Therapeutic bronchoscopy. SOCIAL HISTORY: The patient , has 2 children, lives at home. Denies any history of alcohol use. The patient stated he has not been absolutely using [place], [place] REPORT OF CONSULTATION [facility]: [facility] [id number] UNIT #: [id number] ROOM: [facility] DOCTOR: NIKO EDWARDS MD BIRTHDATE: [birth year] any tobacco products and tobacco use were discontinued 40 years ago. He has been noted with inhalation of coal dust with the diagnosis of pneumoconiosis established previously. FAMILY HISTORY: Father at 60 years old with complication of tuberculosis. Mother at the age of 5050 years old, complication of type 2 diabetes mellitus. MEDICATIONS: Current administered medication noted use of Lovenox for DVT prophylaxis, IV Solu-Medrol 40 mg q.8h., DuoNeb q.4h., magnesium hydroxide p.r.n. use, Levaquin 500 mg IV daily and other p.r.n. medications administered as well. DRUG ALLERGIES: Noted allergies: 1. ZANTAC. 2. AZITHROMYCIN. PHYSICAL EXAMINATION: GENERAL: A 66-year-old male who has been currently noted awake and alert, sitting on the chair in his room. Height of 5 feet 4 inches, weight of 203 pounds, BMI 34.9. VITAL SIGNS: Normal temperature, respiratory rate 20, heart rate 88, blood pressure 129/78-146/72. The pulse oxygen saturation of the patient was recorded as 93% on 4 liters nasal cannula. HEENT: Shows head was atraumatic. Eyes nonicterus. NECK: Supple. CARDIOVASCULAR: S1, S2 is audible. LUNGS: Noted generally decreased breath sounds with scattered expiratory wheezing without any crackles. ABDOMEN: Noted soft, moderate obesity. Bowel sounds present. EXTREMITIES: The patient noted without any acute edema, clubbing or cyanosis. SKIN: Visible skin. No lesions or rashes. MUSCULOSKELETAL: Without acute deformities. CENTRAL NERVOUS SYSTEM: Cranial nerves 2-12 intact. LABORATORY DATA: Lactic acid noted 1.4 on admission this morning. CBC this morning essentially noted normal except eosinophils of 8.3%. CMP of the patient on admission was noted as glucose 111, BUN normal, creatinine was normal. The chest x-ray of the patient that has been also noted on 07/04/2017 showed changes of scarring in the lower lung for this patient as well as hyperinflation and COPD. Hyperinflation was also noted. IMPRESSION: 1. 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 2. History of tobacco use in the past. 3. Pneumoconiosis as well. Other past medical history as noted previously. [place], [place] REPORT OF CONSULTATION NAME: JASON SANTA UNIT #: [id number] ROOM: 506 DOCTOR: KELSEY RAMIREZ MD,NIKO BIRTHDATE: [birth year] PLAN OF TREATMENT: Continuation of bronchodilators, oxygen supplementation, current dose of corticosteroids without any changes. Monitor respiratory status closely. Sputum for Gram stain and culture. Assess the patient as an outpatient with medical management, consideration for biological agent for the patient, suggest Nucala, Fasenra and consideration for Xolair treatment for this patient for the long-term management of bronchial asthma since the previous medical management provided for the patient seemed to be ineffective, resulting in frequent hospitalization. As an outpatient, the patient has been receiving already Symbicort, Spiriva and other appropriate medications. On this hospitalization, the patient will be started on the Singulair 10 mg daily as well. Thanks for allowing me to participate in the care of this patient. NIKO COLE MD CM:CONSTR:REPORT OF CONSULTATION 1506 07/07/17 0710 interface
--- NOTE | ~2017-07-05 | PR ---
[place], [place] PROGRESS NOTE [id number] UNIT #: [id number] ROOM: 506 DOCTOR: KELSEY RAMIREZ MD,NIKO BIRTHDATE: [birth year] DOS: 07/08/2017 SUBJECTIVE: The patient has been still noted with some symptoms of shortness of breath and coughing with small amount of sputum expectoration. Denies symptoms of chest pain. The sputum culture was taken on the 07/06/2017, preliminary showing normal primo. The wheezing was also noted at that time. OBJECTIVE: VITAL SIGNS: Normal temperature, respiratory rate 18, heart rate 68, blood pressure 160/64 to 130/68. Pulse oxygen saturation of the patient 3 liters 94% saturation. HEENT: No acute change. NECK: Supple. CARDIOVASCULAR: S1, S2 audible. LUNGS: Moderate decreased breath sounds, mild expiratory wheezing, no crackles. ABDOMEN: Soft, nontender. EXTREMITIES: Without any acute edema. LABORATORY DATA: Culture of the sputum preliminary showed normal primo on 07/06/2017, final culture results were pending. BMP: Glucose 236, BUN 29, creatinine was normal. CBC: WBC count 17.6. IMPRESSION: 1. The patient with acute exacerbation of bronchial asthma, eosinophilic phenotype with acute exacerbation of COPD, history of pneumoconiosis. 2. Steroid-induced hyperglycemia. PLAN OF TREATMENT: No change in the plan of management. Monitor culture results. Continue bronchodilators, oxygen supplementation therapy, plan of management and care plan. Usual treatment. Supportive plan of therapies. NIKO COLE MD CM:PNTRANS [id number] [id number] NIKO RAMIREZ MD 07/09/17 1002 interface
--- NOTE | ~2017-07-05 | PR ---
[place], [place] PROGRESS NOTE [id number] UNIT #: [id number] ROOM: 506 DOCTOR: KELSEY RAMIREZ MD,NIKO BIRTHDATE: [birth year] DOS: 07/09/2017 PULMONARY PROGRESS NOTE SUBJECTIVE: He has been comfortably resting. Coughing has been still described by the patient, not much change. Denies symptoms of hemoptysis. The patient stated some postnasal drainage as well. OBJECTIVE: VITAL SIGNS: For the patient which have been reported are as normal temperature, respiratory rate 20, heart rate 78, blood pressure 108/66. Pulse oxygen saturation on 4 liters nasal cannula 94% saturation. HEENT: Head was atraumatic, eyes nonicterus. NECK: Supple. CARDIOVASCULAR: S1, S2 audible. LUNGS: The patient was noted without any wheezing or crackles at the present time. Breaths are noted mildly decreased bilaterally. ABDOMEN: Soft, nontender. EXTREMITIES: The patient was noted without any acute edema. IMPRESSION: 1. The patient with slow resolution of acute exacerbation of bronchial asthma. 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 2. Acute exacerbation of chronic obstructive pulmonary disease. 3. Acute bronchitis. PLAN OF MANAGEMENT: No changes in the plan of care for the patient at this time. Continue with current therapy for the patient as in progress. Usual care. Supportive care, plan of management, and other treatments. NIKO COLE MD CM:PNTRANS [phone] NIKO RAMIREZ MD 07/10/17 0357 interface
--- NOTE | ~2017-07-05 | PR ---
[place], [place] PROGRESS NOTE NAME: [id number] UNIT #: [id number] ROOM: 506 DOCTOR: KELSEY RAMIREZ MD,NIKO BIRTHDATE: [birth year] DOS: 07/11/2017 SUBJECTIVE: The patient is noted comfortable at this time, resting on a chair. The shortness of breath, cough, and other symptoms have been improving. Denies symptoms of chest pain, nausea, vomiting, diarrhea, or any abdominal pain. OBJECTIVE: VITAL SIGNS: For the patient, which was done this morning, were noted with a normal temperature. The respiratory rate of the patient was recorded as 20, heart rate of 69, blood pressure 134/81. The pulse oxygen saturation on 3 liters nasal cannula was recorded as 92% saturation. HEENT: No acute change. NECK: Supple. CARDIOVASCULAR: S1, S2 is audible. LUNGS: Noted without any wheeze or crackles. ABDOMEN: Soft, nontender. EXTREMITIES: Without any acute edema. IMPRESSION: Improvement and resolution was noted in the respiratory status progressively. PLAN OF MANAGEMENT: The patient could be discharged home to be followed up in the office for the bronchial asthma, eosinophilic type. NIKO COLE MD CM:PNTRANS [phone] NIKO RAMIREZ MD 07/12/17 0155 interface
--- NOTE | ~2017-07-05 | PR ---
[place], [place] PROGRESS NOTE NAME: JASON SANTA [facility] #: [id number] UNIT #: [id number] ROOM: 506 DOCTOR: KELSEY RAMIREZ MD,NIKO BIRTHDATE: [birth year] DOS: 07/07/2017 SUBJECTIVE: He has been noted comfortable at this time. He is still complaining of shortness of breath with nonproductive cough. Denies symptoms of chest pain or hemoptysis. The patient denies abdominal pain, nausea, vomiting or diarrhea. The patient was continued with Solu-Medrol, bronchodilators and antibiotics. OBJECTIVE: VITAL SIGNS: For the patient which were recorded this morning, normal temperature, respiratory rate 20, heart rate 80, blood pressure 124/63. The pulse oxygen saturation on 3 liters cannula 93% saturation. HEENT: Examination shows head is atraumatic. Eyes nonicterus. NECK: Supple. CARDIOVASCULAR: S1, S2 is audible. LUNGS: The patient noted with moderate expiratory wheezing. No crackles. ABDOMEN: Soft with jouz-iv-oldboryd obesity. EXTREMITIES: Without any acute edema. 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 LABORATORY DATA: History of pneumoconiosis as well. PLAN OF TREATMENT: No change in the plan of therapy. Continue the steroids, bronchodilators, oxygen supplementation, other treatment plan for the patient as in progress. Continue other supportive plan of therapy and care plan. Usual medical management and other therapies. Supportive care. NIKO COLE MD CM:PNKATIE [id number] NIKO RAMIREZ MD 07/09/17 0138 interface
[~2017-07-05 23:52] MED LIST changes: +OMEPRAZOLE D/R20 MG PO; +OMEPRAZOLE40 MG PO
[2017-07-05 23:59] VITALS: BP 156/82
[2017-07-06 00:39] LABS: BASO % 0.4 % (0.0-1.0); EOS # 0.7 10*3/uL (0.0-0.4); EOS % 8.3 % (1.0-4.0); HEMATOCRIT 46.4 % (42.0-52.0); HEMOGLOBIN 15.2 g/dl (14.0-18.0); MEAN CELL VOLUME 94.5 fl (80.0-94.0); MEAN CORPUSCULAR HGB CONC 32.8 g/dl (33.0-37.0); MEAN PLATELET VOLUME 9.8 fl (9.6-12.3); MONO # 0.5 10*3/uL (0.1-1.0); MONO % 6.7 % (3.0-9.0); NEUT # 5.7 10*3/uL (2.3-7.9); NEUT % 71.3 % (47.0-73.0); PLATELET COUNT AUTOMATED 170 10*3/uL (130-400); RED BLOOD COUNT 4.91 10*6/uL (4.50-5.90); RED CELL DISTRI WIDTH 13.6 % (0-14.5); WHITE BLOOD COUNT 7.9 10*3/uL (4.8-10.8)
[2017-07-06 00:58] LABS: ALBUMIN 3.8 gm/dl (3.1-4.5); ALKALINE PHOSPHATASE 71 U/L (45-117); BUN 20 mg/dl (7-24); CHLORIDE 107 mmol/L (98-107); CREATININE 1.13 mg/dL (0.70-1.30); LIPASE 155 U/L (73-393); POTASSIUM 4.2 mmol/L (3.5-5.1); SGOT/AST 18 IU/L (3-35); SGPT/ALT 31 U/L (12-78); SODIUM 140 mmol/L (136-145); TOTAL PROTEIN 7.2 gm/dL (6.4-8.2)
[2017-07-06 01:01] VITALS: BP 146/72
[2017-07-06 01:34] VITALS: BP 147/81
[2017-07-06 08:00] VITALS: BP 110/68
[2017-07-06 12:00] VITALS: BP 129/78
[2017-07-06 16:00] VITALS: BP 117/62
[2017-07-06 20:00] VITALS: BP 118/55
[2017-07-07] VITALS: BP 124/69
[2017-07-07 06:46] LABS: HEMATOCRIT 45.8 % (42.0-52.0); MEAN CORPUSCULAR HGB 31.1 pg (27.0-31.0); MEAN CORPUSCULAR HGB CONC 32.8 g/dl (33.0-37.0); MEAN PLATELET VOLUME 10.2 fl (9.6-12.3); PLATELET COUNT AUTOMATED 188 10*3/uL (130-400); RED BLOOD COUNT 4.82 10*6/uL (4.50-5.90); RED CELL DISTRI WIDTH 13.8 % (0-14.5); WHITE BLOOD COUNT 16.7 10*3/uL (4.8-10.8)
[2017-07-07 07:04] LABS: BUN 25 mg/dl (7-24); CHLORIDE 101 mmol/L (98-107); CREATININE 1.27 mg/dL (0.70-1.30); PHOSPHOROUS 3.6 mg/dL (2.5-4.9); SODIUM 136 mmol/L (136-145)
[2017-07-07 07:12] LABS: TOTAL CELLS COUNTED 100 #CELLS
[2017-07-07 07:13] LABS: BURR CELLS FEW; PLATELET SUFFICIENCY NORMAL (NORMAL)
[2017-07-07 08:00] VITALS: BP 124/63
[2017-07-07 12:00] VITALS: BP 141/70
[2017-07-07 16:00] VITALS: BP 127/77
[2017-07-07 20:00] VITALS: BP 123/66
[2017-07-08] VITALS: BP 130/68
[2017-07-08 06:36] LABS: BASO % 0.1 % (0.0-1.0); HEMATOCRIT 45.4 % (42.0-52.0); HEMOGLOBIN 14.8 g/dl (14.0-18.0); LYMPH # 0.9 10*3/uL (1.3-4.4); LYMPH % 5.2 % (27.0-41.0); MEAN CELL VOLUME 95.8 fl (80.0-94.0); MEAN CORPUSCULAR HGB 31.2 pg (27.0-31.0); MEAN CORPUSCULAR HGB CONC 32.6 g/dl (33.0-37.0); MONO # 0.7 10*3/uL (0.1-1.0); NEUT # 15.9 10*3/uL (2.3-7.9); PLATELET COUNT AUTOMATED 197 10*3/uL (130-400); RED BLOOD COUNT 4.74 10*6/uL (4.50-5.90); RED CELL DISTRI WIDTH 13.9 % (0-14.5); WHITE BLOOD COUNT 17.6 10*3/uL (4.8-10.8)
[2017-07-08 06:57] LABS: BUN 29 mg/dl (7-24); CHLORIDE 102 mmol/L (98-107); CREATININE 1.28 mg/dL (0.70-1.30); POTASSIUM 5.1 mmol/L (3.5-5.1); SODIUM 136 mmol/L (136-145)
[2017-07-08 08:00] VITALS: BP 116/64
[2017-07-08 16:00] VITALS: BP 112/64
[2017-07-08 20:00] VITALS: BP 125/67
[2017-07-09] VITALS: BP 152/83
[2017-07-09 08:00] VITALS: BP 120/86
[2017-07-09 12:00] VITALS: BP 108/66
[2017-07-09 16:00] VITALS: BP 148/81
[2017-07-09 20:00] VITALS: BP 153/73
[2017-07-10] VITALS: BP 140/65
[2017-07-10 08:00] VITALS: BP 123/71
[2017-07-10 12:00] VITALS: BP 132/62
[2017-07-10 16:00] VITALS: BP 131/67
[2017-07-10 20:00] VITALS: BP 120/96
[2017-07-11] VITALS: BP 122/72
[2017-07-11 06:59] LABS: BASO % 0.1 % (0.0-1.0); LYMPH # 0.7 10*3/uL (1.3-4.4); MEAN CELL VOLUME 92.8 fl (80.0-94.0); MEAN CORPUSCULAR HGB 30.9 pg (27.0-31.0); MEAN CORPUSCULAR HGB CONC 33.3 g/dl (33.0-37.0); MEAN PLATELET VOLUME 9.6 fl (9.6-12.3); MONO # 1.3 10*3/uL (0.1-1.0); MONO % 7.1 % (3.0-9.0); NEUT # 15.6 10*3/uL (2.3-7.9); PLATELET COUNT AUTOMATED 201 10*3/uL (130-400); RED BLOOD COUNT 5.17 10*6/uL (4.50-5.90); RED CELL DISTRI WIDTH 13.4 % (0-14.5); WHITE BLOOD COUNT 17.7 10*3/uL (4.8-10.8)
[2017-07-11 07:24] LABS: CREATININE 1.28 mg/dL (0.70-1.30)
[2017-07-11 08:00] VITALS: BP 134/81
[2017-07-11] MEDS ORDERED: LEVOFLOXACIN500 MG PO (09:43)
[2017-07-11] MEDS ORDERED: PREDNISONE10 MG PO (09:43)
[2017-07-11] MEDS ORDERED: MONTELUKAST SOD10 MG PO (09:45)
== END 2017-07-11 13:47 | disposition home or self-care (01) | DRG 189 ==
LOC: ED 23:52 → EDHOLD 07-06 01:10 → 5E 07-06 01:10
PROVIDERS: Emergency Medicine; Emergency Medicine Emergency Medical Services; Internal Medicine Nephrology; Student in an Organized Health Care Education/Training Program
DX: J96.21 Acute and chronic respiratory failure with hypoxia (principal); E11.65 Type 2 diabetes mellitus with hyperglycemia; J82 Pulmonary eosinophilia, not elsewhere classified; Z99.81 Dependence on supplemental oxygen; J44.0 Chronic obstructive pulmonary disease with (acute) lower respiratory infection; J44.1 Chronic obstructive pulmonary disease with (acute) exacerbation; D75.89 Other specified diseases of blood and blood-forming organs; N40.0 Benign prostatic hyperplasia without lower urinary tract symptoms; J60 Coalworker's pneumoconiosis; D72.810 Lymphocytopenia; I10 Essential (primary) hypertension; E78.5 Hyperlipidemia, unspecified; E55.9 Vitamin D deficiency, unspecified; J20.9 Acute bronchitis, unspecified; M19.90 Unspecified osteoarthritis, unspecified site; E66.9 Obesity, unspecified; Z88.1 Allergy status to other antibiotic agents; Z88.8 Allergy status to other drugs, medicaments and biological substances; Z79.2 Long term (current) use of antibiotics; Z79.899 Other long term (current) drug therapy; Z87.442 Personal history of urinary calculi; Z86.73 Personal history of transient ischemic attack (TIA), and cerebral infarction without residual deficits; Z87.891 Personal history of nicotine dependence; Z79.4 Long term (current) use of insulin; Z84.89 Family history of other specified conditions; Z83.3 Family history of diabetes mellitus; Z82.49 Family history of ischemic heart disease and other diseases of the circulatory system; Z82.5 Family history of asthma and other chronic lower respiratory diseases; Z68.34 Body mass index [BMI] 34.0-34.9, adult

== ENCOUNTER 2017-09-13 06:21 | Inpatient (IN) | payer MEDICARE, OTHER ==
[~2017-09-13] VITALS: Ht 162.5 cm; Wt 87.2 kg
[2017-09-13] VITALS (8 sets, daily range): BP systolic 122–136; BP diastolic 60–80
--- NOTE | ~2017-09-13 | EKG ---
[place], [place] ELECTROCARDIOGRAM REPORT NAME: JASON SANTA UNIT #: [id number] ROOM: [facility] DOCTOR: KELSEY RAMIREZ MD,NIKO BIRTHDATE: [birth year] DOS: 09/13/2017 The electrocardiogram was done on 09/13/2017 at 07:42 a.m. It showed normal sinus rhythm, heart rate 77 beats per minute. Mild nonspecific ST-T changes noted in all of the chest leads. NIKO COLE MD CM:EKGRPT:ELECTROCARDIOGRAM REPORT 19 NIKO RAMIREZ MD
--- NOTE | ~2017-09-13 | PR ---
[place], [place] PROGRESS NOTE [id number] UN[facility] #: [id number] ROOM: 515 DOCTOR: KELSEY RAMIREZ MD,NIKO BIRTHDATE: [birth year] DOS: 09/15/2017 SUBJECTIVE: The patient was noted comfortable at this time. Stated reduction in symptoms of cough and able to expectorate some sputum, shortness breath and wheezing was resolving. Denies any symptoms of chest pain or any hemoptysis. OBJECTIVE: VITAL SIGNS: Normal temperature, respiratory rate 18, heart rate 92, blood pressure 140/89-120/60. Pulse oxygen saturation on 3 liters 95% saturation. HEENT: Head was atraumatic. Eyes nonicterus. NECK: Supple. CARDIOVASCULAR: S1, S2 audible. LUNGS: The patient noted with jwwj-vd-vjaucidz capacity questionable wheezing, no crackles. ABDOMEN: Soft, nontender, bowel sounds present. EXTREMITIES: The patient was noted without any acute edema. LABORATORY DATA: The CBC noted WBC count of 17,000. IMPRESSION: 1. The patient with resolving acute exacerbation of chronic obstructive pulmonary disease and bronchial asthma as well. 2. Leukocytosis, most likely related to corticosteroid, which typically given high dose. 3. The patient with eosinophilic type of bronchial asthma as well. PLAN OF MANAGEMENT: Reduce the Solu-Medrol dose to 60 mg to rather 40 mg b.i.d. dosing at this time from 60 mg q.8. hours and assess the patient response, if changes in symptoms in the next 24 hours. Continue in the meantime, other plan of therapy, the patient care and others. Usual care, other supportive plan of management and other treatments to be continued. NIKO COLE MD CM:PNKATIE [phone] NIKO RAMIREZ MD 09/16/17 0137 interface
--- NOTE | ~2017-09-13 | CON ---
[place], [place] REPORT OF CONSULTATION NAME: JASON SANTA [facility] #: [id number] UNIT #: [id number] ROOM: 515 DOCTOR: NIKO EDWARDS MD BIRTHDATE: [birth year] DOS: 09/14/2017 PULMONARY CONSULTATION CONSULTATION REQUESTED BY: Hospitalist services. REASON FOR CONSULTATION: Assess the patient for acute exacerbation of bronchial asthma. HISTORY OF PRESENT ILLNESS: This is 66-year-old white male who has been known with history of eosinophilic phenotype bronchial asthma. The patient presented to the hospital because of increased shortness of breath. The patient reported symptoms of shortness of breath occurring for a couple of days associated with cough. Cough has been noted initially nonproductive, later on productive with white sputum expectoration. Denies any purulence of the sputum. The patient denies any symptoms of chest pain. The patient was also noted with wheezing as well. He denies symptoms of hemoptysis or recurrent symptoms. He has been currently admitted to the hospital for further medical management. REVIEW OF SYSTEMS: CONSTITUTIONAL: Symptoms of fatigue and tiredness noted without any symptoms of fever or chills. EYES: Denies any burning, redness, or tenderness. EARS, NOSE, THROAT SYMPTOMS: Denies sore throat, hoarseness, otalgia, postnasal drainage or epistaxis. CARDIOVASCULAR: Denies anginal pain, edema, or pain of lower extremities. GASTROINTESTINAL: Denies dysphagia, nausea, vomiting, diarrhea, abdominal pain, or hematochezia. GENITOURINARY: Denies dysuria, suprapubic pain, or hematuria. MUSCULOSKELETAL: Denies acute joint pain, redness, or tenderness. SKIN: Denies abnormal lesions or rashes. CENTRAL NERVOUS SYSTEM: The patient denies symptoms of dizziness, headache, diplopia, syncopal episodes or focal neurologic deficit. Remaining systems were reviewed. They were noted all negative. PAST MEDICAL HISTORY: 1. Centrilobular emphysema. 2. Black lung with pneumoconiosis. 3. Bronchial asthma, uncomplicated, severely persistent with eosinophilic phenotype. 4. Essential hypertension. 5. Type 2 diabetes mellitus. 6. Nephrolithiasis. PAST SURGICAL HISTORY: Therapeutic bronchoscopy. SOCIAL HISTORY: The patient is , has 2 children, lives at home. Denies history of alcohol or illicit drug use. Tobacco use was noted for the patient in the past, which was discontinued 40 years ago. 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 FAMILY HISTORY: His father at 62 years old, complication of tuberculosis. Mother at 50 years of complication of type 2 diabetes mellitus. MEDICATIONS: Current medications administered were noted use of Flomax, simvastatin, sliding scale insulin coverage, Dulera 200/5, gabapentin, IV Solu-Medrol 60 mg q.8 hours, Mucinex, DuoNeb q.4h, Lovenox for DVT prophylaxis, Levaquin, and other p.r.n. medications. DRUG ALLERGY HISTORY: REPORTED ALLERGY TO: 1. ZITHROMAX, CAUSING SKIN RASH. 2. ZANTAC. PHYSICAL EXAMINATION: GENERAL: A 66-year-old white male, currently sitting on side of bed without any acute distress this morning. Height 5 feet 4 inches, weight of 192 pounds. VITAL SIGNS: For the patient which has been recorded showed normal temperature, respiratory rate 18-20, heart rate of 95-102, blood pressure 122/60-113/60. The pulse ox saturation on 3 liters nasal cannula is 93% saturation. HEENT: Head was atraumatic. Eyes nonicterus. NECK: Supple. CARDIOVASCULAR: S1, S2 audible. LUNGS: Without any crackles or rhonchi. Mild to moderate expiratory wheezing. ABDOMEN: Soft, nontender. Bowel sounds present. EXTREMITIES: Without any acute edema. VISIBLE SKIN: No lesions or rashes. CENTRAL NERVOUS SYSTEM: Cranial nerves 2-12 intact. No focal deficit. MUSCULOSKELETAL: No deformity. LABORATORY DATA: The patient's CBC that was done yesterday eosinophils were 8.1%. Remaining CBC was normal. The lactic acid yesterday was noted as normal. CMP of the patient that was done 09/13/2017, glucose 147, BUN normal, creatinine normal, remaining CMP normal. CBC this morning, white blood count 14.9, hemoglobin and hematocrit normal, platelet count were normal. CMP of the patient that was done 09/14/2017, glucose 201, BUN and creatinine was normal. Chest x-ray, 1 view, which was done in the Emergency Room was noted without any acute pulmonary infiltration. IMPRESSION: 1. The patient has been noted with recurrent acute exacerbation of bronchial asthma and chronic obstructive pulmonary disease. Asthma noted eosinophilic type and eosinophilia noted on admission CBC. 2. The patient with a history of pneumoconiosis as well. PLAN OF MANAGEMENT: He has been started on Solu-Medrol. The patient's current dose is 60 mg q.8 hours that will be continued today and the dose will be decreased from tomorrow morning. Continue bronchodilators and other treatment plan of management. Usual care, other supportive therapy, plan of management. [place], [place] REPORT OF CONSULTATION NAME: JASON SANTA UNIT #: [id number] ROOM: [facility] DOCTOR: NIKO EDWARDS MD BIRTHDATE: [birth year] Outpatient assessment pending with the patient to assess the patient for additional medication for bronchial asthma long-term management such as Nucala or other similar class for the long-term management of bronchial asthma consideration. NIKO COLE MD CM:CONSTR:REPORT OF CONSULTATION 1748 09/15/17 0413 interface
--- NOTE | ~2017-09-13 | PR ---
[place], [place] PROGRESS NOTE [id number] UN[facility] #: [id number] ROOM: 515 DOCTOR: KELSEY RAMIREZ MD,NIKO BIRTHDATE: [birth year] DOS: 09/16/2017 PULMONARY PROGRESS NOTE SUBJECTIVE: He has been noted continued reduction and improvement in respiratory symptoms, coughing and shortness of breath. There were no symptoms of chest pain. The wheezing has been improved. Sitting currently this morning on the chair in his room at the time of the examination. OBJECTIVE: VITAL SIGNS: Normal temperature, respiratory rate 16, heart rate 76, blood pressure 102/72. The pulse oxygen saturation of the patient recorded as 95% saturation on 3 liters nasal cannula. HEENT: Shows head was atraumatic, eyes nonicterus. NECK: Supple and hjxx-dc-tswtraqd obesity. CARDIOVASCULAR: S1, S2 audible. LUNGS: Without any wheeze or crackles. ABDOMEN: Soft, nontender. EXTREMITIES: Without any acute edema. LABORATORY DATA: CBC today: WBC count 12,000. BMP of the patient with normal BUN and creatinine, glucose 177. IMPRESSION: 1. The patient with progressive and gradual resolution of acute exacerbation of bronchial asthma, eosinophilic type. 2. The patient with acute exacerbation of chronic obstructive pulmonary disease as well with history of pneumoconiosis. PLAN OF TREATMENT: Consideration for discharge for the patient may be done from pulmonary standpoint. Tapering dose of prednisone, antibiotics, and others. Continue other supportive therapy, plan of management, and care plan. NIKO COLE MD CM:PNTRANS [phone] NIKO RAMIREZ MD 09/16/17 1039 interface
[~2017-09-13 06:21] MED LIST changes: +MONTELUKAST SOD10 MG PO
[2017-09-13 06:47] LABS: BASO % 0.6 % (0.0-1.0); EOS # 0.5 10*3/uL (0.0-0.4); EOS % 8.1 % (1.0-4.0); HEMATOCRIT 44.2 % (42.0-52.0); HEMOGLOBIN 14.9 g/dl (14.0-18.0); LYMPH # 1.1 10*3/uL (1.3-4.4); LYMPH % 17.8 % (27.0-41.0); MEAN CELL VOLUME 92.1 fl (80.0-94.0); MEAN CORPUSCULAR HGB CONC 33.7 g/dl (33.0-37.0); MONO # 0.6 10*3/uL (0.1-1.0); MONO % 9.2 % (3.0-9.0); NEUT # 3.9 10*3/uL (2.3-7.9); PLATELET COUNT AUTOMATED 152 10*3/uL (130-400); RED CELL DISTRI WIDTH 13.3 % (0-14.5); WHITE BLOOD COUNT 6.2 10*3/uL (4.8-10.8)
[2017-09-13 07:12] LABS: ALKALINE PHOSPHATASE 64 U/L (45-117); BUN 19 mg/dl (7-24); CHLORIDE 105 mmol/L (98-107); CREATININE 1.04 mg/dL (0.70-1.30); POTASSIUM 3.6 mmol/L (3.5-5.1); SGOT/AST 20 IU/L (3-35); SGPT/ALT 32 U/L (12-78); SODIUM 137 mmol/L (136-145)
[2017-09-13 07:15] LABS: TROPONIN I < 0.015 ng/ml (<0.045)
[2017-09-14] VITALS: BP 127/73
[2017-09-14 06:16] LABS: HEMATOCRIT 43.6 % (42.0-52.0); HEMOGLOBIN 14.3 g/dl (14.0-18.0); MEAN CELL VOLUME 93.8 fl (80.0-94.0); MEAN CORPUSCULAR HGB 30.8 pg (27.0-31.0); MEAN CORPUSCULAR HGB CONC 32.8 g/dl (33.0-37.0); PLATELET COUNT AUTOMATED 166 10*3/uL (130-400); RED BLOOD COUNT 4.65 10*6/uL (4.50-5.90); RED CELL DISTRI WIDTH 13.7 % (0-14.5); WHITE BLOOD COUNT 14.9 10*3/uL (4.8-10.8)
[2017-09-14 06:50] LABS: ALBUMIN 3.9 gm/dl (3.1-4.5); ALKALINE PHOSPHATASE 59 U/L (45-117); BUN 21 mg/dl (7-24); CHLORIDE 109 mmol/L (98-107); CHOLESTEROL 107 mg/dL (<200); CREATININE 1.18 mg/dL (0.70-1.30); HDL CHOLESTEROL 42 mg/dl (40-60); LDL CHOLESTEROL 51 mg/dL (9-159); PHOSPHOROUS 3.3 mg/dL (2.5-4.9); POTASSIUM 4.2 mmol/L (3.5-5.1); SGOT/AST 13 IU/L (3-35); SGPT/ALT 28 U/L (12-78); SODIUM 140 mmol/L (136-145); TOTAL PROTEIN 7.2 gm/dL (6.4-8.2); TRIGLYCERIDES 69 mg/dl (<150); VLDL CHOLESTEROL 14 mg/dL (6-40)
[2017-09-14 06:55] LABS: THYROID STIM HORMONE (HS) 0.237 uIU/ml (0.358-4.75)
[2017-09-14 07:07] LABS: TOTAL CELLS COUNTED 100 #CELLS
[2017-09-14 07:08] LABS: PLATELET SUFFICIENCY NORMAL (NORMAL)
[2017-09-14 07:57] LABS: VITAMIN D, 25-HYDROXY 36.8 ng/mL (30-100)
[2017-09-14 08:00] VITALS: BP 117/78
[2017-09-14 12:00] VITALS: BP 113/60
[2017-09-14 16:00] VITALS: BP 112/60
[2017-09-14 20:00] VITALS: BP 115/61
[2017-09-15] VITALS: BP 112/68
[2017-09-15 06:44] LABS: HEMATOCRIT 44.3 % (42.0-52.0); HEMOGLOBIN 14.3 g/dl (14.0-18.0); MEAN CELL VOLUME 95.3 fl (80.0-94.0); MEAN CORPUSCULAR HGB 30.8 pg (27.0-31.0); MEAN CORPUSCULAR HGB CONC 32.3 g/dl (33.0-37.0); MEAN PLATELET VOLUME 10.1 fl (9.6-12.3); PLATELET COUNT AUTOMATED 164 10*3/uL (130-400); RED BLOOD COUNT 4.65 10*6/uL (4.50-5.90); RED CELL DISTRI WIDTH 14.3 % (0-14.5); WHITE BLOOD COUNT 17.8 10*3/uL (4.8-10.8)
[2017-09-15 06:59] LABS: BUN 24 mg/dl (7-24); CHLORIDE 106 mmol/L (98-107); POTASSIUM 4.8 mmol/L (3.5-5.1); SODIUM 138 mmol/L (136-145)
[2017-09-15 07:01] LABS: FREE T4 0.94 ng/dl (0.76-1.46)
[2017-09-15 07:09] LABS: TOTAL CELLS COUNTED 100 #CELLS
[2017-09-15 07:10] LABS: PLATELET SUFFICIENCY NORMAL (NORMAL)
[2017-09-15 08:00] VITALS: BP 120/60
[2017-09-15 12:00] VITALS: BP 145/89
[2017-09-15 16:00] VITALS: BP 129/65
[2017-09-15 20:00] VITALS: BP 123/70
[2017-09-16] VITALS: BP 125/61
[2017-09-16 06:42] LABS: BASO % 0.2 % (0.0-1.0); EOS % 0.2 % (1.0-4.0); HEMATOCRIT 45.5 % (42.0-52.0); HEMOGLOBIN 14.6 g/dl (14.0-18.0); LYMPH # 1.7 10*3/uL (1.3-4.4); LYMPH % 14.2 % (27.0-41.0); MEAN CORPUSCULAR HGB 30.8 pg (27.0-31.0); MEAN CORPUSCULAR HGB CONC 32.1 g/dl (33.0-37.0); MONO # 0.8 10*3/uL (0.1-1.0); MONO % 6.7 % (3.0-9.0); NEUT # 9.4 10*3/uL (2.3-7.9); NEUT % 78.1 % (47.0-73.0); PLATELET COUNT AUTOMATED 164 10*3/uL (130-400); RED BLOOD COUNT 4.74 10*6/uL (4.50-5.90); RED CELL DISTRI WIDTH 14.3 % (0-14.5)
[2017-09-16 07:15] LABS: BUN 23 mg/dl (7-24); CHLORIDE 104 mmol/L (98-107); CREATININE 1.19 mg/dL (0.70-1.30); POTASSIUM 4.4 mmol/L (3.5-5.1); SODIUM 137 mmol/L (136-145)
[2017-09-16 08:00] VITALS: BP 102/72; BP 90/65
[2017-09-16 12:00] VITALS: BP 102/73
[2017-09-16] MEDS ORDERED: PREDNISONE10 MG PO (12:56)
[2017-09-16] MEDS ORDERED: LEVOFLOXACIN500 MG PO (12:56)
[2017-09-16 16:00] VITALS: BP 128/64
[2017-09-16 20:00] VITALS: BP 147/78
== END 2017-09-16 22:50 | disposition home or self-care (01) | DRG 190 ==
LOC: ED 06:21 → 5E 07:58 → EDHOLD 07:58 → 5E 08:11
PROVIDERS: Internal Medicine; Internal Medicine Nephrology; Student in an Organized Health Care Education/Training Program
DX: J44.0 Chronic obstructive pulmonary disease with (acute) lower respiratory infection (principal); J18.9 Pneumonia, unspecified organism; J96.11 Chronic respiratory failure with hypoxia; E87.8 Other disorders of electrolyte and fluid balance, not elsewhere classified; E44.1 Mild protein-calorie malnutrition; E11.65 Type 2 diabetes mellitus with hyperglycemia; J45.901 Unspecified asthma with (acute) exacerbation; Z99.81 Dependence on supplemental oxygen; Z68.45 Body mass index [BMI] 70 or greater, adult; J44.1 Chronic obstructive pulmonary disease with (acute) exacerbation; M19.90 Unspecified osteoarthritis, unspecified site; N40.0 Benign prostatic hyperplasia without lower urinary tract symptoms; I10 Essential (primary) hypertension; E78.5 Hyperlipidemia, unspecified; J60 Coalworker's pneumoconiosis; D72.810 Lymphocytopenia; E66.9 Obesity, unspecified; E55.9 Vitamin D deficiency, unspecified; D72.829 Elevated white blood cell count, unspecified; Z88.8 Allergy status to other drugs, medicaments and biological substances; Z79.899 Other long term (current) drug therapy; Z79.4 Long term (current) use of insulin; Z87.442 Personal history of urinary calculi; Z86.73 Personal history of transient ischemic attack (TIA), and cerebral infarction without residual deficits; Z87.891 Personal history of nicotine dependence; Z82.5 Family history of asthma and other chronic lower respiratory diseases; Z84.89 Family history of other specified conditions; Z83.3 Family history of diabetes mellitus; Z82.49 Family history of ischemic heart disease and other diseases of the circulatory system

== ENCOUNTER 2017-12-05 15:10 | Inpatient (IN) | payer MEDICARE, OTHER ==
[~2017-12-05] VITALS: Ht 162.6 cm; Wt 89.4 kg
--- NOTE | ~2017-12-05 | CON ---
[place], [place] REPORT OF CONSULTATION [id number] UNIT #: [id number] ROOM: 507 DOCTOR: NIKO EDWARDS MD BIRTHDATE: [birth year] DOS: 12/06/2017 PULMONARY CONSULTATION EVALUATION AND MANAGEMENT CONSULTATION REQUESTED BY: Hospitalist service. REASON FOR CONSULTATION: For assessment of current acute exacerbation of bronchial asthma/chronic obstructive pulmonary disease. HISTORY OF PRESENT ILLNESS: A 66-year-old white male who has been known to me from the past. The patient has been admitted in this hospital in 09/2017 and managed the patient at that time for the acute exacerbation of bronchial asthma, the patient's eosinophilic phenotype as well as acute exacerbation of COPD. The patient has been treated with corticosteroid. Medical management for the patient was provided and then subsequently discharged home. The patient has done well and moved away from local area towards [place], [place]. He has been previously admitted in [facility] as well. The patient was planned to be seen by another pulmonary physician for the assessment of the pulmonary disease. The patient has reported symptoms of shortness of breath that occurs with exertion. He does have zord-qg-fjtwmwyj cough without any sputum expectoration. Denies symptoms of chest pain. The patient stated that he came into this hospital as advised by the [place] physician. REVIEW OF SYSTEMS: CONSTITUTIONAL SYMPTOMS: Fatigue and tiredness noted without any symptoms of fever or chills. EYES: Denies any burning, redness, or tenderness. EARS, NOSE, THROAT SYMPTOMS: Denies sore throat, hoarseness, otalgia postnasal drainage, or epistaxis. CARDIOVASCULAR SYSTEM: Denies angina pain, edema, pain of lower extremity. GASTROINTESTINAL SYMPTOMS: Denies dysphagia, nausea, vomiting, diarrhea, abdominal pain, hematemesis, melena, or hematochezia. GENITOURINARY SYMPTOMS: No dysuria, suprapubic pain, or hematuria. MUSCULOSKELETAL SYMPTOMS: No acute joint pain, redness, tenderness, or deformities. SKIN: No abnormal lesions or rashes. CENTRAL NERVOUS SYSTEM: Denies seizures, diplopia, headache, or focal neurologic deficit. Remaining systems were reviewed. They were noted all negative. PAST MEDICAL HISTORY: 1. Centrilobular emphysema. 2. Black lung with pneumoconiosis. 3. Uncomplicated severe persistent bronchial asthma with eosinophilic phenotype. 4. Essential hypertension. 5. Type 2 diabetes mellitus. 6. Nephrolithiasis. [place], [place] REPORT OF CONSULTATION NAME: JASON SANTA [facility] #: [id number] UNIT #: [id number] ROOM: 507 DOCTOR: NIKO EDWARDS MD BIRTHDATE: [birth year] SURGICAL HISTORY: Noted as therapeutic bronchoscopy. SOCIAL HISTORY: The patient is , has 2 children, lives at home. There is no history of alcohol use or illicit drug use. Tobacco use known in the past, discontinued 40 years ago. 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 FAMILY HISTORY: The father at 60 due to complication of tuberculosis. Mother at age 50 years of complication type 2 diabetes mellitus. MEDICATIONS: The medications for the patient, which have been administered at this time noted use of Lovenox, aspirin, lisinopril, Flomax, simvastatin, Solu-Medrol, DuoNeb q.4 hours, Levaquin, Mucinex, and other p.r.n. medications administered. DRUG ALLERGY HISTORY: ALLERGIC TO THE ZITHROMAX, CAUSING SKIN RASH AND RANITIDINE WELL. PHYSICAL EXAMINATION: GENERAL: A 66-year-old white male currently noted sitting on the chair without any acute distress. Height of 5 feet 4 inches, weight of 197 pounds, BMI 33.8. VITAL SIGNS: Blood pressure 100/55, heart rate of 90, respiratory rate 18, normal temperature. The pulse oxygen saturation was noted as 93% saturation on 3 L nasal cannula. HEENT: Head was atraumatic. Eyes nonicterus. NECK: Supple. CARDIOVASCULAR: S1, S2 is audible. LUNGS: The patient noted moderate decreased breath sounds with expiratory wheezing without any crackles. ABDOMEN: Soft, nontender. EXTREMITIES: Without any acute edema. SKIN: The patient noted without any lesions or rashes. MUSCULOSKELETAL: Without any acute deformities. LABORATORY DATA: CBC on admission; WBC count 7.4, hemoglobin and hematocrit normal, platelet count normal, 10% eosinophils. CBC done this morning; WBC count 11.1, hemoglobin and hematocrit normal, platelet count was normal. PT and PTT for the patient on 12/06/2017 was normal. CMP of the patient on 12/06/2017; glucose 201, BUN and creatinine normal, remaining electrolytes normal. Chest x-ray 2-view, which was done on 12/05/2017 noted without any acute pulmonary infiltration. Scarring was noted in the major interlobar fissure on the left side, which is a chronic finding. IMPRESSION: 1. The patient who had been currently admitted to the hospital noted with acute exacerbation of bronchial asthma as well as acute exacerbation of chronic obstructive lung disease. Bronchial asthma noted with eosinophilic phenotype with significant eosinophilia noted on admission. 2. Past history of nicotine abuse. The patient denies any nicotine abuse. [place], [place] REPORT OF CONSULTATION NAME: JASON SANTA UNIT #: [id number] ROOM: 507 DOCTOR: NIKO EDWARDS MD BIRTHDATE: [birth year] 3. History of pneumoconiosis was also known for this patient in the past. 4. Chronic thickening of the interlobar fissure of no clinical significance in the left side. PLAN OF MANAGEMENT: Continue current dose of steroids with gradual reduction based on improvement in symptoms of wheezing, shortness of breath and others. The antibiotic has been continued at this time, which may not be necessary. For this patient, intravenously oral antibiotic would be given. There was no evidence of acute pneumonia. Other therapy, plan and management for the patient and plan to be continued as previously. Sputum for Gram stain and culture if the patient does expectorate sputum will be sent to the laboratory. The patient was advised to be followed by the agricultural specialist. Additional medical management for the patient would be needed for the long-term management of chronic uncomplicated severe persistent bronchial asthma, eosinophilic phenotype with immunotherapy assessment. Usual care, other supportive therapy, plan of management and care plan. Thanks for allowing me to participate in the care of this patient. NIKO COLE MD CM:CONSTR:REPORT OF CONSULTATION 1836 12/06/17 7785 interface
--- NOTE | ~2017-12-05 | PR ---
[place], [place] PROGRESS NOTE [id number] UN[facility] #: [id number] ROOM: 507 DOCTOR: KELSEY RAMIREZ MD,NIKO BIRTHDATE: [birth year] DOS: 12/07/2017 PULMONARY PROGRESS NOTE SUBJECTIVE: The patient's sputum has been noted productive, which was sent for culture today. He denies symptoms of chest pain, fever or chills. Denies symptoms of coughing or any sputum expectoration. Denies symptoms of pain of the lower extremities. OBJECTIVE: VITAL SIGNS: For the patient shows a normal temperature, respiratory rate 18, heart rate of 74, blood pressure 122/60. The pulse ox saturation on 3 liters nasal cannula 94% saturation. HEENT: Examination shows head was atraumatic. Eyes nonicterus. NECK: Supple. CARDIOVASCULAR: S1, S2 is audible. LUNGS: The patient was noted with expiratory wheezing, no crackles. ABDOMEN: Soft, nontender. Bowel sounds present. EXTREMITIES: Without any acute edema. LABORATORY DATA: Culture of the sputum was pending. The Gram stain, moderate epithelial cells, white blood cells, many gram-positive cocci in pairs and chains, moderate gram-negative bacilli and few gram-negative diplococci. IMPRESSION: The patient with acute exacerbation of bronchial asthma and chronic obstructive pulmonary disease with acute bronchitis. PLAN OF MANAGEMENT: No changes in the plan of management. Monitor culture results. Continue antibiotics, corticosteroids and other therapies. NIKO COLE MD CM:PNKATIE 1251 1730 NIKO RAMIREZ MD 12/07/17 1728 interface
--- NOTE | ~2017-12-05 | EKG ---
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
--- NOTE | ~2017-12-05 | PR ---
[place], [place] PROGRESS NOTE [id number] #: [id number] ROOM: 507 DOCTOR: KELSEY RAMIREZ MD,NIKO BIRTHDATE: [birth year] DOS: 12/08/2017 SUBJECTIVE: The patient was noted comfortable at this time, resting and sitting on the chair, eating breakfast. Denies any symptoms of chest pain. Shortness of breath reported decreased. Wheezing was also improved significantly. There were no symptoms of chest pain. Cough has been noted very mild with minimal sputum expectoration. OBJECTIVE: VITAL SIGNS: Normal temperature, respiratory rate 20, heart rate 66, blood pressure 126/75. Pulse ox saturation on 2 liters nasal cannula 98% saturation. HEENT: Head was atraumatic. Eyes, nonicterus. NECK: Supple. CARDIOVASCULAR: S1, S2 audible. LUNGS: The patient was noted without any wheezing or crackles. ABDOMEN: Soft, nontender. Bowel sounds present. EXTREMITIES: Without any acute edema. LABORATORY DATA: Culture of sputum, preliminary showed normal primo from yesterday. IMPRESSION: 1. The patient with progressive resolution of the acute exacerbation of bronchial asthma as well as chronic obstructive pulmonary disease. 2. History of pneumoconiosis. PLAN OF TREATMENT: The patient could be discharged home on oral antibiotic and bronchodilator therapy. Plan of management and care, usual treatment, other supportive plan of care and therapies. NIKO COLE MD CM:PNTRANS 1231 1302 NIKO RAMIREZ MD 12/08/17 1300 interface
[2017-12-05 15:10] VITALS: BP 139/79
[2017-12-05] MEDS ORDERED: GLIPIZIDE5 MG PO (15:16)
[2017-12-05 15:41] LABS: BASO # 0.1 10*3/uL (0.0-0.1); BASO % 0.7 % (0.0-1.0); EOS # 0.8 10*3/uL (0.0-0.4); EOS % 10.1 % (1.0-4.0); HEMATOCRIT 43.6 % (42.0-52.0); HEMOGLOBIN 14.5 g/dl (14.0-18.0); LYMPH % 26.9 % (27.0-41.0); MEAN CELL VOLUME 95.2 fl (80.0-94.0); MEAN CORPUSCULAR HGB 31.7 pg (27.0-31.0); MEAN CORPUSCULAR HGB CONC 33.3 g/dl (33.0-37.0); MEAN PLATELET VOLUME 9.7 fl (9.6-12.3); MONO # 0.8 10*3/uL (0.1-1.0); MONO % 10.8 % (3.0-9.0); NEUT # 3.8 10*3/uL (2.3-7.9); NEUT % 51.1 % (47.0-73.0); PLATELET COUNT AUTOMATED 171 10*3/uL (130-400); RED BLOOD COUNT 4.58 10*6/uL (4.50-5.90); RED CELL DISTRI WIDTH 13.3 % (0-14.5); WHITE BLOOD COUNT 7.4 10*3/uL (4.8-10.8)
[2017-12-05 15:49] LABS: ACT PARTIAL THROMBO TIME 24.7 SECONDS (20.8-31.5)
[2017-12-05 15:56] LABS: ALBUMIN 3.8 gm/dl (3.1-4.5); ALKALINE PHOSPHATASE 49 U/L (45-117); BUN 16 mg/dl (7-24); CHLORIDE 108 mmol/L (98-107); LIPASE 168 U/L (73-393); POTASSIUM 3.9 mmol/L (3.5-5.1); SGOT/AST 20 IU/L (3-35); SGPT/ALT 35 U/L (12-78); SODIUM 140 mmol/L (136-145); TOTAL PROTEIN 6.8 gm/dL (6.4-8.2); TROPONIN I < 0.015 ng/ml (<0.045)
[2017-12-05 17:25] VITALS: BP 155/96
[2017-12-05 18:05] VITALS: BP 146/92
[2017-12-05] MEDS ORDERED: LISINOPRIL5 MG PO (18:42)
[2017-12-05] MEDS ORDERED: ASPIRIN ADULT L81 M2 PO (18:45)
[2017-12-05] MEDS ORDERED: ASPIRIN81 MG PO (18:46)
[2017-12-05] MEDS ORDERED: GLUCOPHAGE500 M1 PO (18:48)
[2017-12-05] MEDS ORDERED: MUCINEX FAST-M1 EA13 PO (18:54)
[2017-12-05] MEDS ORDERED: MUCINEX ER600 MG PO (18:56)
[2017-12-05 20:00] VITALS: BP 137/73
[2017-12-06] VITALS: BP 133/81
[2017-12-06 05:58] LABS: HEMATOCRIT 47.2 % (42.0-52.0); HEMOGLOBIN 15.5 g/dl (14.0-18.0); MEAN CELL VOLUME 95.4 fl (80.0-94.0); MEAN CORPUSCULAR HGB 31.3 pg (27.0-31.0); MEAN CORPUSCULAR HGB CONC 32.8 g/dl (33.0-37.0); MEAN PLATELET VOLUME 10.1 fl (9.6-12.3); PLATELET COUNT AUTOMATED 214 10*3/uL (130-400); RED BLOOD COUNT 4.95 10*6/uL (4.50-5.90); RED CELL DISTRI WIDTH 13.3 % (0-14.5); WHITE BLOOD COUNT 11.1 10*3/uL (4.8-10.8)
[2017-12-06 06:21] LABS: ALBUMIN 4.1 gm/dl (3.1-4.5); BUN 20 mg/dl (7-24); CHLORIDE 102 mmol/L (98-107); CHOLESTEROL 158 mg/dL (<200); CREATININE 1.22 mg/dL (0.70-1.30); PHOSPHOROUS 3.1 mg/dL (2.5-4.9); POTASSIUM 4.2 mmol/L (3.5-5.1); SGOT/AST 14 IU/L (3-35); SGPT/ALT 36 U/L (12-78); SODIUM 136 mmol/L (136-145)
[2017-12-06 06:28] LABS: ALKALINE PHOSPHATASE 59 U/L (45-117); FREE T4 0.83 ng/dl (0.76-1.46); HDL CHOLESTEROL 57 mg/dl (40-60); LDL CHOLESTEROL 91 mg/dL (9-159); THYROID STIM HORMONE (HS) 0.291 uIU/ml (0.358-4.75); TOTAL PROTEIN 7.4 gm/dL (6.4-8.2); TRIGLYCERIDES 48 mg/dl (<150); VLDL CHOLESTEROL 10 mg/dL (6-40)
[2017-12-06 06:34] LABS: ACT PARTIAL THROMBO TIME 24.4 SECONDS (20.8-31.5)
[2017-12-06 07:07] LABS: PLATELET SUFFICIENCY NORMAL (NORMAL); TOTAL CELLS COUNTED 100 #CELLS
[2017-12-06 07:59] LABS: VITAMIN D, 25-HYDROXY 29.1 ng/mL (30-100)
[2017-12-06 12:00] VITALS: BP 100/55
[2017-12-06 16:00] VITALS: BP 106/62
[2017-12-06 20:00] VITALS: BP 101/54
[2017-12-07] VITALS: BP 117/62
[2017-12-07 06:30] LABS: HEMOGLOBIN 14.7 g/dl (14.0-18.0); MEAN CELL VOLUME 95.7 fl (80.0-94.0); MEAN CORPUSCULAR HGB 31.3 pg (27.0-31.0); MEAN CORPUSCULAR HGB CONC 32.7 g/dl (33.0-37.0); PLATELET COUNT AUTOMATED 201 10*3/uL (130-400); RED CELL DISTRI WIDTH 13.6 % (0-14.5); WHITE BLOOD COUNT 17.8 10*3/uL (4.8-10.8)
[2017-12-07 06:39] LABS: BUN 24 mg/dl (7-24); CHLORIDE 104 mmol/L (98-107); CREATININE 1.14 mg/dL (0.70-1.30); POTASSIUM 4.8 mmol/L (3.5-5.1); SODIUM 139 mmol/L (136-145)
[2017-12-07 07:01] LABS: PLATELET SUFFICIENCY NORMAL (NORMAL); TOTAL CELLS COUNTED 100 #CELLS
[2017-12-07 08:00] VITALS: BP 122/60
[2017-12-07 12:00] VITALS: BP 123/63
[2017-12-07 16:00] VITALS: BP 127/98
[2017-12-07 20:00] VITALS: BP 109/50
[2017-12-08] VITALS: BP 110/59
[2017-12-08 06:17] LABS: BASO % 0.1 % (0.0-1.0); HEMATOCRIT 44.4 % (42.0-52.0); HEMOGLOBIN 14.5 g/dl (14.0-18.0); LYMPH % 6.5 % (27.0-41.0); MEAN CELL VOLUME 96.1 fl (80.0-94.0); MEAN CORPUSCULAR HGB 31.4 pg (27.0-31.0); MEAN CORPUSCULAR HGB CONC 32.7 g/dl (33.0-37.0); MEAN PLATELET VOLUME 10.1 fl (9.6-12.3); MONO # 0.6 10*3/uL (0.1-1.0); MONO % 3.7 % (3.0-9.0); NEUT % 88.8 % (47.0-73.0); PLATELET COUNT AUTOMATED 186 10*3/uL (130-400); RED BLOOD COUNT 4.62 10*6/uL (4.50-5.90); RED CELL DISTRI WIDTH 13.7 % (0-14.5); WHITE BLOOD COUNT 15.8 10*3/uL (4.8-10.8)
[2017-12-08 06:32] LABS: CHLORIDE 104 mmol/L (98-107); CREATININE 1.12 mg/dL (0.70-1.30); POTASSIUM 4.8 mmol/L (3.5-5.1); SODIUM 138 mmol/L (136-145)
[2017-12-08 06:36] LABS: BUN 25 mg/dl (7-24)
[2017-12-08 08:00] VITALS: BP 126/75
[2017-12-08] MEDS ORDERED: LEVAQUIN250 M1 PO (09:02)
[2017-12-08] MEDS ORDERED: PREDNISONE10 MG PO (09:02)
== END 2017-12-08 10:36 | disposition home or self-care (01) | DRG 190 ==
LOC: ED 15:10 → 5E 17:32 → EDHOLD 17:32 → 5E 17:53
PROVIDERS: Internal Medicine; Nurse Practitioner Family
DX: J44.0 Chronic obstructive pulmonary disease with (acute) lower respiratory infection (principal); J18.9 Pneumonia, unspecified organism; J96.10 Chronic respiratory failure, unspecified whether with hypoxia or hypercapnia; E44.1 Mild protein-calorie malnutrition; J45.51 Severe persistent asthma with (acute) exacerbation; Z82.5 Family history of asthma and other chronic lower respiratory diseases; J20.9 Acute bronchitis, unspecified; E11.65 Type 2 diabetes mellitus with hyperglycemia; E87.8 Other disorders of electrolyte and fluid balance, not elsewhere classified; D72.810 Lymphocytopenia; N20.0 Calculus of kidney; J60 Coalworker's pneumoconiosis; M19.90 Unspecified osteoarthritis, unspecified site; E78.5 Hyperlipidemia, unspecified; I10 Essential (primary) hypertension; E55.9 Vitamin D deficiency, unspecified; N40.0 Benign prostatic hyperplasia without lower urinary tract symptoms; Z88.1 Allergy status to other antibiotic agents; Z88.8 Allergy status to other drugs, medicaments and biological substances; Z79.82 Long term (current) use of aspirin; Z79.84 Long term (current) use of oral hypoglycemic drugs; Z79.899 Other long term (current) drug therapy; Z99.81 Dependence on supplemental oxygen; Z86.73 Personal history of transient ischemic attack (TIA), and cerebral infarction without residual deficits; Z87.891 Personal history of nicotine dependence; Z82.49 Family history of ischemic heart disease and other diseases of the circulatory system; Z83.3 Family history of diabetes mellitus

== ENCOUNTER 2018-03-12 09:39 | Inpatient (IN) | payer OTHER, MEDICARE ==
[~2018-03-12] VITALS: Ht 162.6 cm; Wt 90.4 kg
--- NOTE | ~2018-03-12 | CON ---
[place], [place] REPORT OF CONSULTATION [id number] UNIT #: [id number] ROOM: 511 DOCTOR: NIKO EDWARDS MD BIRTHDATE: [birth year] DOS: 03/14/2018 PULMONARY CONSULTATION EVALUATION AND MANAGEMENT REASON FOR CONSULTATION: Assess the patient for acute exacerbation of bronchial asthma and chronic obstructive pulmonary disease. HISTORY OF PRESENT ILLNESS: A 67-year-old white male patient is known to me from the past. He has been known with history of chronic obstructive pulmonary disease as well as eosinophilic type bronchial asthma. He has been admitted to the hospital and treated in 11/2017 and discharged home. The patient has been diagnosed with eosinophilic phenotype bronchial asthma. The patient has [facility] benefits. He had been given information about requiring the medication such [facility] Fasenra [facility]. The patient is a poor historian, does not remember, stated that he has been started on some new kind of pill instead that has been taken by the patient few days, but could not recall or tell me the name of this medication. He has been admitted to the hospital and currently being treated under the care of the hospitalist service from date of 03/12/2018. The patient stated worsening of the wheezing with shortness of breath and productive cough for the past 4 days. The symptoms have been noted progressively worse. The patient denies any symptoms of chest pain, shortness of breath, cough and wheezing has been noted somewhat decreased since hospitalization. He denies symptoms of chest pain with that. He does have symptoms of chest tightness. REVIEW OF SYSTEMS: CONSTITUTIONAL: Fatigue and tiredness reported. Denies symptoms of fever or chills. EYES: Denies any burning, redness, or tenderness. EARS, NOSE, THROAT SYMPTOMS: Denies sore throat, hoarseness, otalgia, postnasal drainage or epistaxis. CARDIOVASCULAR: Denies angina pain, edema, pain of the lower extremity. GASTROINTESTINAL: Denies dysphagia, nausea, vomiting, diarrhea, abdominal pain, hematemesis, melena, hematochezia. SKIN: Denies abnormal lesions or rashes. MUSCULOSKELETAL: No acute joint pain, redness, or tenderness. SKIN: Denies lesions or rashes. CENTRAL NERVOUS SYSTEM: Denies dizziness, headache, diplopia, syncopal episode. Remaining systems were reviewed with the patient, they were noted all negative. PAST MEDICAL HISTORY: 1. 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 2. Chronic obstructive pulmonary disease. 3. History of black lung. 4. Essential hypertension. 5. Type 2 diabetes mellitus. 6. Nephrolithiasis. PAST SURGICAL HISTORY: Therapeutic bronchoscopy. [place], [place] REPORT OF CONSULTATION NAME: JASON SANTA [facility] #: [id number] UNIT #: [id number] ROOM: 511 DOCTOR: NIKO EDWARDS MD BIRTHDATE: [birth year] SOCIAL HISTORY: The patient is , has 2 children, lives at home. Denies history of alcohol or illicit drug use. Tobacco use was noted short term, which was discontinued approximately 4 years ago. 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 FAMILY HISTORY: The patient's father at age 60 years complication of tuberculosis. Mother at 50 years old, complication related to diabetes mellitus. HOME MEDICATIONS: The medications which has been taken by the patient in the home were listed use of Singulair, Spiriva Respimat, Symbicort, vitamin D, lisinopril, aspirin, simvastatin, Flomax and Onglyza. The patient does use oxygen supplementation 2 liters nasal cannula at bedtime. DRUG ALLERGIES: The patient noted as allergies: 1. ZITHROMAX. 2. ZANTAC. PHYSICAL EXAMINATION: GENERAL: A 67-year-old white male patient who has been noted currently awake and alert, sitting on the chair in his room. Height of 5 feet 4 inches, weight 199 pounds, BMI 34.2. VITAL SIGNS: Normal temperature, respiratory rate of 20-21, heart rate 69-58, blood pressure 126/62-136/77. Pulse oxygen saturation on 3 liters nasal cannula 95% saturation. HEENT: Head was atraumatic. Eyes nonicterus. NECK: Supple. CARDIOVASCULAR: S1, S2 audible. LUNGS: Moderate degree breath with mild to moderate expiratory wheezing, no crackles. ABDOMEN: Soft, nontender, bowel sounds present. EXTREMITIES: No edema. MUSCULOSKELETAL: Without acute deformities. CENTRAL NERVOUS SYSTEM: Cranial nerves 2-12 intact. LABORATORY DATA: CBC that was done on 03/12/2018 was noted as eosinophils 8.6%. WBC 5.6 with normal hemoglobin and hematocrit. Lactic acid 2.7 followed by 1.7 on 03/12/2018. CMP of 03/12/2018, normal BUN and creatinine. Glucose 173. PT/PTT were noted normal on the as well. CBC that was done this morning, WBC count 14.4, hemoglobin and hematocrit normal, platelet count was normal. BMP this morning, glucose 176. Normal BUN, creatinine and electrolytes normal. Chest x-ray, 2-view, which was done on 03/12/2018 was reviewed, does not show any acute pulmonary disease. Arterial blood gas 27.3 liters, pH 7.41, pCO2 of 33, pO2 of 76.9. IMPRESSION: 1. The patient currently admitted to the hospital with acute exacerbation of eosinophilic phenotype bronchial asthma and exacerbation of chronic obstructive pulmonary disease. [place], [place] REPORT OF CONSULTATION NAME: JASON SANTA UNIT #: [id number] ROOM: [facility] DOCTOR: NIKO EDWARDS MD BIRTHDATE: [birth year] 2. History of type 2 diabetes mellitus. 3. Mild hyperglycemia related to use of corticosteroids. 4. The patient frequent hospitalization. 5. Moderate obesity by history as well. 6. History of essential hypertension. PLAN OF MANAGEMENT: The patient has been currently receiving the Solu-Medrol that will be continued and his old medications also reviewed, which is available on formulary as well. Bronchodilator will be continued every 4 hours. Continue current antibiotics. Further treatment changes will be done based on progression of the illness except equal use of corticosteroid be decreased to 40 mg Solu-Medrol b.i.d. for this patient at the present time. Other treatment change will be made based on progression of the illness in the next couple of days. Supportive care therapy, plan of management and care plan. Thanks for allowing me to participate in the care of this patient. NIKO COLE MD CM:CONSTR:REPORT OF CONSULTATION 1822 03/15/18 0541 interface
--- NOTE | ~2018-03-12 | PR ---
[place], [place] PROGRESS NOTE [id number] UNIT #: [id number] ROOM: 511 DOCTOR: KELSEY RAMIREZ MD,NIKO BIRTHDATE: [birth year] DOS: 03/15/2018 SUBJECTIVE: The patient has been noted comfortable at this time, resting with continued improvement in the resolution of the acute respiratory symptoms of cough, wheezing and shortness of breath was noted. Denies symptoms of chest pain or fever. OBJECTIVE: VITAL SIGNS: Normal temperature, respiratory rate 16, heart rate 78, blood pressure 123/66 with pulse oxygen saturation 3 liters 95% saturation. HEENT: No acute change. NECK: Supple. CARDIOVASCULAR: S1, S2 is audible. LUNGS: The patient was noted without any wheeze or crackle at the present time. The Noted completely clear bilaterally. ABDOMEN: Soft, nontender. Bowel sounds present. EXTREMITIES: No edema. IMPRESSION: The patient with the continued improvement in acute exacerbation of bronchial asthma and bronchitis. The patient was noted at this time with significant improvement noted in the last 24 hours. PLAN OF MANAGEMENT: The patient could be considered home discharge at time this to be followed in the office as previously scheduled. The discharge planning was discussed with Dr. Foster. NIKO COLE MD CM:PNTRANS [id number] NIKO RAMIREZ MD 03/15/18 1847 interface
[~2018-03-12 09:39] MED LIST changes: +ASPIRIN81 MG PO; +GLUCOPHAGE500 M1 PO; +LEVAQUIN250 M1 PO; +MUCINEX FAST-M1 EA13 PO
[2018-03-12 09:41] VITALS: BP 102/55
--- NOTE | 2018-03-12 10:00 | NUR ---
PATIENT DENIES ANY WOUNDS AT THIS TIME. A&OX4.
[2018-03-12 10:15] LABS: BASO % 0.5 % (0.0-1.0); EOS # 0.5 10*3/uL (0.0-0.4); EOS % 8.6 % (1.0-4.0); HEMATOCRIT 42.5 % (42.0-52.0); HEMOGLOBIN 14.2 g/dl (14.0-18.0); LYMPH % 17.1 % (27.0-41.0); MEAN CELL VOLUME 92.6 fl (80.0-94.0); MEAN CORPUSCULAR HGB 30.9 pg (27.0-31.0); MEAN CORPUSCULAR HGB CONC 33.4 g/dl (33.0-37.0); MEAN PLATELET VOLUME 9.7 fl (9.6-12.3); MONO # 0.4 10*3/uL (0.1-1.0); MONO % 7.2 % (3.0-9.0); NEUT # 3.7 10*3/uL (2.3-7.9); NEUT % 66.4 % (47.0-73.0); PLATELET COUNT AUTOMATED 159 10*3/uL (130-400); RED BLOOD COUNT 4.59 10*6/uL (4.50-5.90); RED CELL DISTRI WIDTH 12.9 % (0-14.5); WHITE BLOOD COUNT 5.6 10*3/uL (4.8-10.8)
--- NOTE | 2018-03-12 10:20 | NUR ---
PATIENT GIVEN URINAL AT THIS TIME.
[2018-03-12 10:32] LABS: ALBUMIN 3.8 gm/dl (3.1-4.5); ALKALINE PHOSPHATASE 52 U/L (45-117); BUN 15 mg/dl (7-24); CHLORIDE 106 mmol/L (98-107); CREATININE 1.17 mg/dL (0.70-1.30); POTASSIUM 4.1 mmol/L (3.5-5.1); SGOT/AST 23 IU/L (3-35); SGPT/ALT 48 U/L (12-78); SODIUM 142 mmol/L (136-145)
[2018-03-12 11:35] VITALS: BP 109/62
--- NOTE | 2018-03-12 11:46 | NUR ---
PT REQUESTING SOMETHING TO EAT.
--- NOTE | 2018-03-12 12:48 | NUR ---
PATIENT TAKEN TO 5TH FLOOR AT THIS TIME BY THIS NURSE.
[2018-03-12 12:59] LABS: ACT PARTIAL THROMBO TIME 23.1 SECONDS (20.8-31.5)
[2018-03-12 13:00] VITALS: BP 135/68
--- NOTE | 2018-03-12 13:00 | NUR ---
A 67, admitted to 5E, under the services of JEFF Hickey DO with a diagnosis of COPD. Chief complaint is SOB. Patient arrived via bed from ER. Monitor applied. Initial assessment completed. Vital signs taken and recorded. JEFF HICKEY DO notified of admission to the unit. Orders received. See assessment for past medical history, medications and allergies. Patient and/or family oriented to unit. [facility] 5E visitation policy reviewed. Clothing/patient valuable form completed. SKIN INTACT WITH NO WOUNDS. PER PT FLU AND PNEUMONIA VACCINATIONS CURRENT. KYLEE PAN
[2018-03-12 13:07] LABS: TROPONIN I < 0.015 ng/ml (<0.045)
--- NOTE | 2018-03-12 13:57 | NUR ---
PT. GIVEN FLUTTER DEVICE
[2018-03-12 13:59] LABS: ABG BASE EXCESS -2.2 mmol/L (-2.0-2.0); ABG HCO3 21.1 mmol/l (22-26); ABG O2 SATURATION 95.3 % (95-97); ARTERIAL BLOOD GAS PCO2 33.1 mmHg (35-45); ARTERIAL BLOOD GAS PH 7.419 (7.35-7.45); ARTERIAL BLOOD GAS PO2 79.6 mmHg (80-90)
[2018-03-12] MEDS ORDERED: SINGULAIR10 M1 PO (14:03)
[2018-03-12] MEDS ORDERED: VITAMIN D32000 UNI1 PO (14:03)
[2018-03-12] MEDS ORDERED: ONGLYZA5 MG PO (14:04)
[2018-03-12 16:00] VITALS: BP 126/58
--- NOTE | 2018-03-12 16:00 | NUR ---
Patient resting quietly with no c/o discomfort. Respirations easy and regular. Vital signs stable. No overt distress. ADRIA LEO
[2018-03-12 20:00] VITALS: BP 130/64
[2018-03-13] VITALS: BP 118/70
[2018-03-13 06:28] LABS: BASO % 0.2 % (0.0-1.0); EOS % 0.2 % (1.0-4.0); HEMATOCRIT 44.2 % (42.0-52.0); HEMOGLOBIN 14.5 g/dl (14.0-18.0); LYMPH # 0.9 10*3/uL (1.3-4.4); LYMPH % 7.4 % (27.0-41.0); MEAN CELL VOLUME 93.1 fl (80.0-94.0); MEAN CORPUSCULAR HGB 30.5 pg (27.0-31.0); MEAN CORPUSCULAR HGB CONC 32.8 g/dl (33.0-37.0); MEAN PLATELET VOLUME 9.5 fl (9.6-12.3); MONO # 0.7 10*3/uL (0.1-1.0); MONO % 5.1 % (3.0-9.0); NEUT % 86.7 % (47.0-73.0); PLATELET COUNT AUTOMATED 185 10*3/uL (130-400); RED BLOOD COUNT 4.75 10*6/uL (4.50-5.90); RED CELL DISTRI WIDTH 12.9 % (0-14.5); WHITE BLOOD COUNT 12.7 10*3/uL (4.8-10.8)
[2018-03-13 06:57] LABS: ALBUMIN 3.9 gm/dl (3.1-4.5); ALKALINE PHOSPHATASE 52 U/L (45-117); BUN 19 mg/dl (7-24); CHLORIDE 106 mmol/L (98-107); CHOLESTEROL 152 mg/dL (<200); CREATININE 1.08 mg/dL (0.70-1.30); HDL CHOLESTEROL 58 mg/dl (40-60); LDL CHOLESTEROL 82 mg/dL (9-159); PHOSPHOROUS 3.4 mg/dL (2.5-4.9); POTASSIUM 4.5 mmol/L (3.5-5.1); SGOT/AST 19 IU/L (3-35); SGPT/ALT 44 U/L (12-78); SODIUM 141 mmol/L (136-145); TOTAL PROTEIN 7.5 gm/dL (6.4-8.2); TRIGLYCERIDES 60 mg/dl (<150); VLDL CHOLESTEROL 12 mg/dL (6-40)
[2018-03-13 07:04] LABS: THYROID STIM HORMONE (HS) 0.497 uIU/ml (0.358-4.75)
[2018-03-13 08:00] VITALS: BP 102/60
[2018-03-13 08:02] LABS: VITAMIN D, 25-HYDROXY 29.5 ng/mL (30-100)
--- NOTE | 2018-03-13 09:00 | NUR ---
Water Inspector in to talk to patient. Patient states lives at home with alone. There are few steps in the home. Physician: [facility]: has nurses that visit couple times a month Patient's level of ADLs: INDEPENDENT Patient has working utilities: all working DME: home oxygen, portable tanks, nebulizer Follow-up physician's appointment after d/c: will be made by hospitalist nurse director upon discharge Does patient want to access PORTAL?: no Discharge plan discussed with patient, patient lives at home alone, he is independent in adls and ambulaiton, patient drives, he has home oxygen and portable tanks, doesn't remember name of company supplying the oxygen. patient states that [facility] has set up a nurse to come to his home and see him a couple times a month, he also has a life alert necklace supplied from [employer]. patient states he will be going home when able and denies any home needs. HERMILO ZAPIEN
[2018-03-13 12:00] VITALS: BP 126/64
[2018-03-13 16:00] VITALS: BP 120/76
[2018-03-13 20:00] VITALS: BP 102/56
[2018-03-14] VITALS: BP 119/58
[2018-03-14 06:48] LABS: BASO % 0.1 % (0.0-1.0); EOS % 0.1 % (1.0-4.0); HEMATOCRIT 43.9 % (42.0-52.0); HEMOGLOBIN 14.2 g/dl (14.0-18.0); LYMPH # 1.3 10*3/uL (1.3-4.4); LYMPH % 8.9 % (27.0-41.0); MEAN CELL VOLUME 93.8 fl (80.0-94.0); MEAN CORPUSCULAR HGB 30.3 pg (27.0-31.0); MEAN CORPUSCULAR HGB CONC 32.3 g/dl (33.0-37.0); MEAN PLATELET VOLUME 9.9 fl (9.6-12.3); MONO # 0.7 10*3/uL (0.1-1.0); MONO % 4.6 % (3.0-9.0); NEUT # 12.4 10*3/uL (2.3-7.9); NEUT % 85.7 % (47.0-73.0); PLATELET COUNT AUTOMATED 202 10*3/uL (130-400); RED BLOOD COUNT 4.68 10*6/uL (4.50-5.90); RED CELL DISTRI WIDTH 13.2 % (0-14.5); WHITE BLOOD COUNT 14.4 10*3/uL (4.8-10.8)
[2018-03-14 07:03] LABS: BUN 24 mg/dl (7-24); CHLORIDE 106 mmol/L (98-107); CREATININE 1.07 mg/dL (0.70-1.30); POTASSIUM 4.1 mmol/L (3.5-5.1); SODIUM 140 mmol/L (136-145)
[2018-03-14 08:00] VITALS: BP 126/62
[2018-03-14 12:00] VITALS: BP 136/77
[2018-03-14 16:00] VITALS: BP 104/55
[2018-03-14 20:00] VITALS: BP 118/54
[2018-03-15] VITALS: BP 123/64
[2018-03-15 06:56] LABS: HEMATOCRIT 46.1 % (42.0-52.0); HEMOGLOBIN 14.9 g/dl (14.0-18.0); MEAN CELL VOLUME 93.9 fl (80.0-94.0); MEAN CORPUSCULAR HGB 30.3 pg (27.0-31.0); MEAN CORPUSCULAR HGB CONC 32.3 g/dl (33.0-37.0); MEAN PLATELET VOLUME 9.8 fl (9.6-12.3); PLATELET COUNT AUTOMATED 212 10*3/uL (130-400); RED BLOOD COUNT 4.91 10*6/uL (4.50-5.90); RED CELL DISTRI WIDTH 13.2 % (0-14.5)
[2018-03-15 06:59] LABS: BUN 27 mg/dl (7-24); CHLORIDE 105 mmol/L (98-107); CREATININE 1.14 mg/dL (0.70-1.30); POTASSIUM 4.4 mmol/L (3.5-5.1); SODIUM 138 mmol/L (136-145)
[2018-03-15 07:28] LABS: PLATELET SUFFICIENCY NORMAL (NORMAL); TOTAL CELLS COUNTED 100 #CELLS
[2018-03-15 08:00] VITALS: BP 104/61
[2018-03-15 12:00] VITALS: BP 123/66
[2018-03-15] MEDS ORDERED: LEVAQUIN500 M2 PO (13:58)
[2018-03-15] MEDS ORDERED: PREDNISONE10 MG PO (13:58)
--- NOTE | 2018-03-15 15:25 | NUR ---
Discharge instructions reviewed with patient/family. Patient receptive and verbalizes understanding. Follow-up care arranged. Written instructions given to patient/family. KYLEE PAN
== END 2018-03-15 15:25 | disposition home or self-care (01) | DRG 191 ==
LOC: ED 09:39 → EDHOLD 12:14 → 5E 12:14
PROVIDERS: Internal Medicine; Internal Medicine Nephrology; Nurse Practitioner Family; ADMIT Internal Medicine
DX: J44.1 Chronic obstructive pulmonary disease with (acute) exacerbation (principal); E87.2 Acidosis; J96.10 Chronic respiratory failure, unspecified whether with hypoxia or hypercapnia; J60 Coalworker's pneumoconiosis; J44.0 Chronic obstructive pulmonary disease with (acute) lower respiratory infection; Z99.81 Dependence on supplemental oxygen; E78.5 Hyperlipidemia, unspecified; N40.0 Benign prostatic hyperplasia without lower urinary tract symptoms; M19.90 Unspecified osteoarthritis, unspecified site; E11.65 Type 2 diabetes mellitus with hyperglycemia; J20.9 Acute bronchitis, unspecified; N20.0 Calculus of kidney; Z68.33 Body mass index [BMI] 33.0-33.9, adult; E55.9 Vitamin D deficiency, unspecified; E66.9 Obesity, unspecified; Z88.1 Allergy status to other antibiotic agents; Z88.9 Allergy status to unspecified drugs, medicaments and biological substances; Z87.891 Personal history of nicotine dependence; Z82.5 Family history of asthma and other chronic lower respiratory diseases; Z83.3 Family history of diabetes mellitus; Z82.49 Family history of ischemic heart disease and other diseases of the circulatory system